=== PATIENT | male | born 1955 | race African-American/Black ===

== ENCOUNTER 2018-11-06 16:47 | Inpatient (IN) | payer OTHER ==
[2018-11-06] MEDS ORDERED: SODIUM CHLORIDE 1,000 ML IV SCH (17:00)
--- NOTE | 2018-11-06 17:01 | PDOC ---
History of Present Illness - General Stated Complaint: POSS STROKE Time Seen by Provider: 11/06/18 16:58 tPA Exclusion checklist 3-4.5h - Time Elapsed Date last known well: 11/06/18 Time last known well: 09:00 Elaspsed time: 2 Day(s) and 9 Hour(s) and 45 Minutes - Thrombolytic Therapy Candidate Is patient eligible for thrombolytic therapy: No - Ineligibility reason(s) Reasons No tPA given: Outside of window - delayed arrival NIH Stroke Scale - Last Known Well Date/Time & Onset Date Last Known Well: 11/06/18 Time Last Known Well: 09:00 - Initial Evaluation Level of consciousness: Alert Ask patient the month and their age: Answers one correctly Ask patient to open & close eyes; make fist and let go: Obeys both correctly Best gaze (horizontal eye movement): Normal Visual field testing: No visual field loss Facial paresis (Show teeth/raise eyebrows/close eyes tight): Minor paralysis ( flattened nasolabial fold, asymmetry on smiling) Motor Function: Left Arm: Normal Motor Function: Right Arm: Normal (extends arm 90 (or 45) degrees for 10 seconds without drift Motor Function: Left Leg: Normal (extends leg 30 degrees for 5 seconds without drift) Motor Function: Right Leg: Drift Limb Ataxia: No ataxia Sensory(Use pinprick test arms,legs,trunk,face/side to side): Normal Best language (Describe picture, name items, read sentences): No Aphasia Dysarthria (read several words): Normal articulation Extinction and Inattention: No abnormality - Total Score NIH Stroke Scale Score: 3 Past History - Past Medical History Allergies/Adverse Reactions: Allergies Allergy/AdvReac Type Severity Reaction Status Date / Time No Known Allergies Allergy Verified 11/06/18 18:13 Home Medications: Ambulatory Orders Carbamazepine [Tegretol -] 200 mg PO BID 11/06/18 Divalproex Sodium [Depakote ER] 500 mg PO BID 11/06/18 Fluoxetine HCl 10 mg PO DAILY 11/06/18 Levetiracetam 500 mg PO BID 11/06/18 Olanzapine [Zyprexa -] 10 mg PO BID 11/06/18 ED Treatment Course - LABORATORY CBC & Chemistry Diagram: 11/08/18 06:10 11/08/18 06:10 - RADIOLOGY Radiology Studies Ordered: Category Date Time Status HEAD CT (STROKE) [CT] Stat CT Scan 11/06/18 16:58 Ordered Medical Decision Making - Medical Decision Making HPI: 63yo M found down at facility. PMH includes seizure disorder, depression, psychosis, chronic constipation. Med list does not include blood thinners. ?LKN may have been 3pm when they took vitals. Per EMS report, slurred speech and "speaking gibberish". Patient now AAOx 2 (states name, age, and place, but not month or year). Perseverating saying he is not feeling well. Not following all commands. ROS: unable to complete as patient is confused PE: General: Awake, alert, and oriented x 2, in no acute distress Head: No signs of trauma Eyes: EOMI, sclera anicteric ENT: Moist mucus membranes Neck: Normal ROM, supple Lungs: Lungs clear, Normal breath sounds Cardio: Regular rhythm, S1 and S2 present Abdomen: Soft, nontender. No guarding, no rebound, no masses Extremities: Normal range of motion, Distal pulses present SKIN: Warm, Dry, normal turgor Neurologic: Please see NIHSS ED Courses/MDM: DDX including but not limited to CVA/TIA, Seizure/post-ictal, brain bleed, brain mass Code Keys given information at that time. 11/06/18 16:59 EKG: rate 64, QTc 416, NSR Per Domonique at [facility], she cannot verify the LKN as 3pm. To her knowledge, he was fine yesterday. This being the case, patient is outside the tpa window. CT Head: "Multiplanar imaging was performed. Intravenous contrast was not administered. No prior imaging studies are available at this facility for direct comparison. No intracranial hemorrhage is seen. There is no extra-axial fluid collection. Extensive bilateral frontal temporal encephalomalacia is seen , left more than right - ? posttraumatic etiology. Status post left frontotemporal and right parietal craniotomies. No acute infarct is identified within the limitations of CT. There is no obvious mass lesion on noncontrast imaging. No obstructive hydrocephalus is noted. The calvarium appears intact. Impression: No definite CT evidence of acute intracranial pathology. Chronic findings as discussed above." 11/06/18 17:35 Callback from Domonique from [place]. Patient was "fine all day". She is unable to say what time was his last known normal. Patient states he believes he had a seizure. He is back to his baseline, feeling better. I believe the patient had a seizure with Alex's paralysis Current NIHSS is 0 Awaiting callback from neurology 11/06/18 19:[address] Matos who recommends keeping the patient overnight for observation. He also recommends increasing the Depakote dose to 750mg BID. Patient does not necessarily need an MRI. Dr. Matos will see the patient tomorrow. Consult order placed. 11/06/18 19:57 Patient does not know who his PMD is Hospitalist paged 11/06/18 20:[address] Davis and accepted patient for telemetry observation under Dr. Duckworth 11/06/18 20:32 Domonique at [place] has been updated regarding patient's disposition 11/06/18 22:26 *DC/Admit/Observation/Transfer Diagnosis at time of Disposition: Alex's paralysis (postepileptic), Seizure, Facial droop - Discharge Dispostion Condition at time of disposition: Guarded Decision to Admit order: Yes - Referrals - Patient Instructions - Post Discharge Activity
--- NOTE | 2018-11-06 17:26 | PDOC ---
Documentation entered by Katie Hoffmann SCRIBE, acting as scribe for Scott Navarro MD. Scott Navarro MD: This documentation has been prepared by the scribeShun Brenda, SCRIBE, under my direction and personally reviewed by me in its entirety. I confirm that the documentation accurately reflects all work, treatment, procedures, and medical decision making performed by me. Attending Attestation - Resident Resident Name: Cassidy Murry - ED Attending Attestation I have performed the following: I have examined & evaluated the patient, The case was reviewed & discussed with the resident, I agree w/resident's findings & plan, Exceptions are as noted - HPI HPI: 11/06/18 18:19 The patient is a 63 year old male, with a significant PMH of seizure disorders, who presents to the emergency department [facility] due to altered mental status. A per EMS, the patient had slurred speech and was not speaking properly, they also believe that his last known well was at 3:00pm. Patient currently reports not feeling well. Patient was a bad historian due to condition. Allergies: NKA - Physicial Exam PE: 11/06/18 19:40 GENERAL: Awake, alert, and fully oriented, in no acute distress HEAD: No signs of trauma EYES: PERRLA, EOMI, sclera anicteric, conjunctiva clear ENT: Auricles normal inspection, hearing grossly normal, nares patent,Moist mucosa NECK: Normal ROM, supple, LUNGS: Breath sounds equal, clear to auscultation bilaterally. No wheezes, and no crackles HEART: Regular rate and rhythm, normal S1 and S2, no murmurs, rubs or gallops ABDOMEN: Soft, nontender, No guarding, no rebound. No masses EXTREMITIES: Normal range of motion, no edema. No clubbing or cyanosis. No cords, erythema, or tenderness NEUROLOGICAL: Cranial nerves II through XII intact. Normal speech. 5/5 strength upper and lower extremities. Sensation intact throughout. No pronator drift. Visual acuity intact. Rapid alternative intact. Finger to nose intact. Heel to mckenna intact. SKIN: Warm, Dry, normal turgor, no rashes or lesions noted. - Medical Decision Making 11/06/18 19:41 A portion of this note was written by my scribe, under my supervision. Vital Signs Temp Pulse Resp BP Pulse Ox 97.8 F 66 16 141/86 98 11/06/18 16:49 11/06/18 16:49 11/06/18 16:49 11/06/18 16:49 11/06/18 16:55 63 year old male presents with likely seizure from his seizure disorder. Pt is on multiple AEDS. Initially, when my resident physicians had seen the patient, the patient appeared confused and postictal. Initially,had R sided weakness. Possibly Alex's paralysis. However, on my evaluation, patient is back at baseline. Neuro exam is completely normal. Head CT is negative for acute findings. CBC, BMP 11/06/18 17:41 11/06/18 17:41 CMP Sodium 140 mmol/L (136-145) 11/06/18 17:41 Potassium 4.7 mmol/L (3.5-5.1) 11/06/18 17:41 Chloride 104 mmol/L (98-107) 11/06/18 17:41 Carbon Dioxide 30 mmol/L (21-32) 11/06/18 17:41 Anion Gap 6 MMOL/L (8-16) L 11/06/18 17:41 BUN 11.1 mg/dL (7-18) 11/06/18 17:41 Creatinine 0.7 mg/dL (0.55-1.3) 11/06/18 17:41 Est GFR (CKD-EPI)AfAm 114.78 11/06/18 17:41 Est GFR (CKD-EPI)NonAf 99.03 11/06/18 17:41 POC Glucometer 94 UNITS (80-120) 11/06/18 17:18 Random Glucose 84 mg/dL (74-106) 11/06/18 17:41 Calcium 8.9 mg/dL (8.5-10.1) 11/06/18 17:41 Total Bilirubin 0.5 mg/dL (0.2-1) 11/06/18 17:41 AST 40 U/L (15-37) H 11/06/18 17:41 ALT 34 U/L (13-61) 11/06/18 17:41 Alkaline Phosphatase 59 U/L (45-117) 11/06/18 17:41 Creatine Kinase 107 U/L (26-308) 11/06/18 17:41 Troponin I < 0.02 ng/ml (0.00-0.05) 11/06/18 17:41 Total Protein 7.9 g/dl (6.4-8.2) 11/06/18 17:41 Albumin 3.4 g/dl (3.4-5.0) 11/06/18 17:41 Triglycerides 118 mg/dL (0-150) 11/06/18 17:41 Cholesterol 170 mg/dL (50-200) 11/06/18 17:41 Total LDL Cholesterol 95 mg/dL (5-100) 11/06/18 17:41 HDL Cholesterol 58 mg/dL (40-60) 11/06/18 17:41 Case was discussed with Dr. Matos. He recommends observation in the hospital. Will admit patient to the hospital. Heart Score/ECG Review #1 ECG reviewed & interpreted by me at: 17:15 11/06/18 17:26 NSR 64, no std/shirley, normal axis, normal intervals, QTC 416 msec NIH Stroke Scale - Last Known Well Date/Time & Onset Date Last Known Well: 11/06/18 - Initial Evaluation Level of consciousness: Alert Ask patient the month and their age: Answers both correctly Ask patient to open & close eyes; make fist and let go: Obeys both correctly Best gaze (horizontal eye movement): Normal Visual field testing: No visual field loss Facial paresis (Show teeth/raise eyebrows/close eyes tight): Normal symmetrical movement Motor Function: Left Arm: Normal Motor Function: Right Arm: Normal (extends arm 90 (or 45) degrees for 10 seconds without drift Motor Function: Left Leg: Normal (extends leg 30 degrees for 5 seconds without drift) Motor Function: Right Leg: Normal (extends leg 30 degrees for 5 seconds without drift) Limb Ataxia: No ataxia Sensory(Use pinprick test arms,legs,trunk,face/side to side): Normal Best language (Describe picture, name items, read sentences): No Aphasia Dysarthria (read several words): Normal articulation Extinction and Inattention: No abnormality - Total Score NIH Stroke Scale Score: 0
[2018-11-06 18:07] LABS: BASO % 0.5 % (0-2.0); EOS % 0.3 % (0-4.5); HEMATOCRIT 38.4 % (35.4-49); HEMOGLOBIN 13.2 GM/dL (11.7-16.9); LYMPH % 51.5 % (8-40); MCHC 34.4 g/dl (32.0-35.9); MEAN CELL VOLUME 93.1 fl (80-96); MEAN PLT VOLUME 9.5 fl (7.5-11.1); MONO % 12.7 % (3.8-10.2); PLATELET COUNT 112 K/MM3 (134-434); RBC 4.12 M/mm3 (4.00-5.60); RDW 13.6 % (11.9-15.9); WHITE BLOOD COUNT 3.4 K/mm3 (4.0-10.0)
[2018-11-06 18:14] LABS: INR 1.03 (0.83-1.09); PROTHROMBIN TIME (PATIENT) 12.1 SEC (9.7-13.0)
[2018-11-06 18:28] LABS: TRIGLYCERIDES 118 mg/dL (0-150)
[2018-11-06 18:34] LABS: ALBUMIN 3.4 g/dl (3.4-5.0); ALK PHOS 59 U/L (45-117); ANION GAP 6 MMOL/L (8-16); BILIRUBIN,TOTAL 0.5 mg/dL (0.2-1); BLOOD UREA NITROGEN 11.1 mg/dL (7-18); CALCIUM 8.9 mg/dL (8.5-10.1); CHLORIDE 104 mmol/L (98-107); CHOLESTEROL 170 mg/dL (50-200); CO2 30 mmol/L (21-32); CREATININE 0.7 mg/dL (0.55-1.3); GLUCOSE,RANDOM 84 mg/dL (74-106); HDL CHOLESTEROL 58 mg/dL (40-60); POTASSIUM 4.7 mmol/L (3.5-5.1); SGOT/AST 40 U/L (15-37); SGPT/ALT 34 U/L (13-61); SODIUM 140 mmol/L (136-145); TOT PROT 7.9 g/dl (6.4-8.2)
[2018-11-06] MEDS ORDERED: levETIRAcetam 500 MG TABLET (FP) PO ONE (22:00)
[2018-11-06] MEDS ORDERED: carBAMazepine 200 MG TABLET ONE (22:00)
[2018-11-06] MEDS: levETIRAcetam 500 MG TABLET (FP) PO SCH (22:28)
[2018-11-06] MEDS: DIVALPROEX NA *ER* EXTEND REL 250 MG TABLET.SA PO SCH (22:28)
[2018-11-06] MEDS: carBAMazepine 200 MG TABLET PO SCH (22:28)
[2018-11-07] MEDS: SODIUM CHLORIDE 1,000 ML IV SCH
[2018-11-07 00:22] VITALS: BMI 27.3
--- NOTE | 2018-11-07 01:32 | PN ---
Teaching Attending Note Name of Resident: Tracey Davis ATTENDING PHYSICIAN STATEMENT I saw and evaluated the patient. Chart, data, imaging reviewed. I reviewed the resident's note and discussed the case with the resident. I agree with the resident's findings and plan as documented. SUBJECTIVE: 63 year old male, with a significant PMH of seizure disorders brought in after witnessed tonic clonic sz episode at assisted 11/06. No complaints when I spoke to him. OBJECTIVE: Last Vital Signs Temp Pulse Resp BP Pulse Ox 97.8 F 53 L 18 138/87 97 11/07/18 00:02 11/07/18 00:02 11/07/18 00:23 11/07/18 00:02 11/07/18 00:23 gen -nontoxic, nad, aaox2 heent -at, nc neck supple cv-s1+s2+rrr chest clear abd -soft Abnormal Lab Results 11/06/18 11/06/18 17:41 17:41 WBC 3.4 L Plt Count 112 L Absolute Neuts (auto) 1.2 L Neutrophils % 35.0 L Lymphocytes % 51.5 H Monocytes % 12.7 H Anion Gap 6 L AST 40 H imaging reviewed ASSESSMENT AND PLAN: Breakthrough witnessed tonic clonic seizure. Clonazepine, Valproate levels were wnl. Pending Keppra level. Head CT neg for acute insults. Doubt tia. -admit to telemetry -npo -neuro eval -echo -c/w home aeds- increase Valproate to 750mg po bid as per neuro recs -monitor vs closely -ekg -check electrolytes, replace prn -dvt ppx
--- NOTE | 2018-11-07 04:08 | HP ---
CHIEF COMPLAINT: seizure PCP: HISTORY OF PRESENT ILLNESS: 63 y/o M with PMH sz d/o (dx 10 yrs ago. on carbamezipine, keppra, depakote), depression, psychosis, constipation, hx L frontal and parietal craniotomy (s/p trauma), who presents to the ED s/p witnessed seizure. Per pt, he fell when he was in his NH at [facility]. Had a witnessed sz with tonic clonic movements , however no tongue biting or urinary or bowel incontinence. States that he hit his head. When pt arrived to ED, NIHSS was done as pt had R sided facial droop, RUE drift. Was found to have score of 4. Last known well 3pm DOA. Was not tPA as outside window and sx improved. Unclear whether sx stemmed from sz or were related to cva. Without FAIRCHILD, fever, chills, SOB, chest pain or changes in urinary or bowel function. Pt is compliant with his sz meds. However states that he has sz "on and off." Ambulates w cane ER course was notable for: (1) neuro consult (2) (3) Recent Travel: denies PAST MEDICAL HISTORY: as above PAST SURGICAL HISTORY: L frontal and parietal craniotomy (s/p trauma) Social History: Smoking: denies Alcohol: denies Drugs: denies Family History: non-contributory Allergies No Known Allergies Allergy (Verified 11/06/18 18:13) HOME MEDICATIONS: Home Medications Medication Instructions Recorded Carbamazepine [Tegretol -] 200 mg PO BID 11/06/18 Divalproex Sodium [Depakote ER] 500 mg PO BID 11/06/18 Fluoxetine HCl 10 mg PO DAILY 11/06/18 Levetiracetam 500 mg PO BID 11/06/18 Olanzapine [Zyprexa -] 10 mg PO BID 11/06/18 meds need to be verified w pharmacy REVIEW OF SYSTEMS none PHYSICAL EXAMINATION Vital Signs 11/07/18 11/07/18 11/07/18 00:02 00:23 01:00 Temperature 97.8 F 98.1 F Pulse Rate 53 L 53 L Pulse Rate [ Left Brachial] Respiratory 18 18 18 Rate Blood Pressure 138/87 127/76 Blood Pressure [Left Arm] O2 Sat by Pulse 97 97 Oximetry (%) GENERAL: Awake, alert, and fully oriented, in no acute distress. HEAD: Normal with no signs of trauma. EYES: Pupils equal, round and reactive to light, extraocular movements intact, sclera anicteric, conjunctiva clear. EARS, NOSE, THROAT: Ears normal, nares patent, oropharynx clear without exudates. Moist mucous membranes. NECK: Normal range of motion, supple LUNGS: Breath sounds equal, clear to auscultation bilaterally. No wheezes, and no crackles. No accessory muscle use. HEART: Regular rate and rhythm, normal S1 and S2 without murmur, rub or gallop. ABDOMEN: Soft, nontender, not distended, normoactive bowel sounds, no guarding, no rebound, no masses. MUSCULOSKELETAL: 5/5 motor strength UE, LE NEUROLOGICAL: Cranial nerves II-XII intact. Normal speech. 5/5 motor strength UE, LE. sensation intact. w/o cerebellar signs. without pronator drift Laboratory Results 11/06/18 11/06/18 11/06/18 17:41 17:41 17:41 WBC 3.4 L Hgb 13.2 Hct 38.4 Plt Count 112 L Sodium 140 Potassium 4.7 Chloride 104 Carbon Dioxide 30 BUN 11.1 Creatinine 0.7 AST 40 H Valproic Acid 72.3 Carbamazepine Levetiracetam 11/06/18 11/06/18 17:41 20:30 Plt Count Valproic Acid Carbamazepine 6.6 Levetiracetam Pending CTH: (-) for acute abnormality ASSESSMENT/PLAN: 63 y/o M with PMH sz d/o (on carbamezipine, keppra, depakote), depression, psychosis, constipation, hx L frontal and parietal craniotomy (s/p trauma), who presents to the ED s/p witnessed seizure. #Seizure episode -possible breakthrough seizure. has been compliant w meds, no infectious stimulus -ED d/w neuro, rec increased dose to depakote 750mg BID (from 500 mg BID) -c/w depakote, carbamezepine, keppra -cont to follow levels -sz precautions -neuro consult: Dr. Matos #r/o CVA -though likely sz, as pt with neuro signs on presentation. r/o cva -f/u ECHO, carotid duplex, s/s, npo, PT #Thrombocytopenia -may be 2/2 anti epileptics -c/t monitor -f/u abd sono to check for splenomegaly -if pt consents to, can check for hiv, hep c #F/E/N IV NS 100 cc/hr continue to follow lytes npo #PPX SCD's. follow thrombocytopenia #Dispo admit to tele Visit type - Emergency Visit Emergency Visit: Yes ED Registration Date: 11/06/18 Care time: The patient presented to the Emergency Department on the above date and was hospitalized for further evaluation of their emergent condition. - New Patient This patient is new to me today: Yes Date on this admission: 11/07/18 - Critical Care Critical Care patient: No ATTENDING PHYSICIAN STATEMENT I saw and evaluated the patient. I reviewed the resident's note and discussed the case with the resident. I agree with the resident's findings and plan as documented. SUBJECTIVE: OBJECTIVE: ASSESSMENT AND PLAN:
[2018-11-07 07:55] LABS: BASO % 0.2 % (0-2.0); CALCIUM 8.9 mg/dL (8.5-10.1); CREATININE 0.7 mg/dL (0.55-1.3); EOS % 0.1 % (0-4.5); HEMATOCRIT 36.2 % (35.4-49); HEMOGLOBIN 12.5 GM/dL (11.7-16.9); LYMPH % 51.1 % (8-40); MAGNESIUM 2.2 mg/dL (1.8-2.4); MCHC 34.4 g/dl (32.0-35.9); MEAN CELL VOLUME 92.9 fl (80-96); MEAN PLT VOLUME 9.2 fl (7.5-11.1); MONO % 14.3 % (3.8-10.2); NEUT % 34.3 % (42.8-82.8); PHOSPHOROUS 3.6 mg/dL (2.5-4.9); PLATELET COUNT 102 K/MM3 (134-434); POTASSIUM 3.7 mmol/L (3.5-5.1); RDW 13.5 % (11.9-15.9); WHITE BLOOD COUNT 4.1 K/mm3 (4.0-10.0)
[2018-11-07 09:10] LABS: URINE APPEARANCE CLEAR; URINE BILIRUBIN NEGATIVE (NEGATIVE); URINE COLOR YELLOW; URINE GLUCOSE (UA) NEGATIVE (NEGATIVE); URINE KETONE NEGATIVE (NEGATIVE); URINE LEUK ESTERASE NEGATIVE (NEGATIVE); URINE NITRITE NEGATIVE (NEGATIVE); URINE PROTEIN NEGATIVE (NEGATIVE)
[2018-11-07] MEDS ORDERED: PT OWN MED DRAWER 7, Y5N ONE ×2 (09:25→21:27)
[2018-11-07] MEDS: FLUoxetine HCL 10 MG CAPSULE (FP) PO SCH (09:45)
[2018-11-07] MEDS: carBAMazepine 200 MG TABLET PO SCH ×2 (09:45→21:32)
[2018-11-07] MEDS: levETIRAcetam 500 MG TABLET (FP) PO SCH ×2 (09:45→21:32)
[2018-11-07] MEDS: DIVALPROEX NA *ER* EXTEND REL 250 MG TABLET.SA PO SCH ×2 (09:47→21:32)
--- NOTE | 2018-11-07 10:50 | CONSULT ---
Consult - text type - Consultation Consultation Note: NEUROLOGY HISTORY OF PRESENT ILLNESS: 63 y/o M with PMH sz d/o (dx 10 yrs ago. on carbamezipine, keppra, depakote), depression, psychosis, constipation, hx L frontal and parietal craniotomy (s/p trauma), who presents to the ED s/p witnessed seizure. As per patient, he fell when he was in his NH at [facility]. He had a witnessed seizure with tonic clonic movements on day of admission, however no tongue biting or urinary or bowel incontinence. Stated that he hit his head. When pt arrived to ED, NIHSS was done as pt had R sided facial droop, RUE drift, was found to have score of 4. Last known well 3pm DOA. Was not tPA as outside window and sx improved. Unclear whether sx stemmed from sz or were related to cva. Without FAIRCHILD , fever, chills, SOB, chest pain or changes in urinary or bowel function. Pt is compliant with his sz meds. However states that he has sz "on and off." Ambulates w cane. Patient completed head ct with no acute findings and carotid doppler ultrasound with moderate calcified atheroscleortic plaque formation at the bifucations. Will order MRI to confirm no acute changes. Recent Travel: denies PAST MEDICAL HISTORY: as above PAST SURGICAL HISTORY: L frontal and parietal craniotomy (s/p trauma) Social History: Smoking: denies Alcohol: denies Drugs: denies Family History: non-contributory Allergies No Known Allergies Allergy (Verified 11/06/18 18:13) Ambulatory Orders Carbamazepine [Tegretol -] 200 mg PO BID 11/06/18 Divalproex Sodium [Depakote ER] 500 mg PO BID 11/06/18 Fluoxetine HCl 10 mg PO DAILY 11/06/18 Levetiracetam 500 mg PO BID 11/06/18 Olanzapine [Zyprexa -] 10 mg PO BID 11/06/18 REVIEW OF SYSTEMS none PHYSICAL EXAMINATION Vital Signs Temperature 98.6 F 11/07/18 06:00 Pulse Rate 55 L 11/07/18 06:00 Respiratory Rate 18 11/07/18 06:00 Blood Pressure 141/84 11/07/18 06:00 O2 Sat by Pulse Oximetry (%) 97 11/07/18 00:23 GENERAL: Awake, alert, and fully oriented, in no acute distress. HEAD: Normal with no signs of trauma. EYES: Pupils equal, round and reactive to light, extraocular movements intact, sclera anicteric, conjunctiva clear. EARS, NOSE, THROAT: Ears normal, nares patent, oropharynx clear without exudates. Moist mucous membranes. NECK: Normal range of motion, supple LUNGS: Breath sounds equal, clear to auscultation bilaterally. No wheezes, and no crackles. No accessory muscle use. HEART: Regular rate and rhythm, normal S1 and S2 without murmur, rub or gallop. ABDOMEN: Soft, nontender, not distended, normoactive bowel sounds, no guarding, no rebound, no masses. MUSCULOSKELETAL: 5/5 motor strength UE, LE NEUROLOGICAL: Cranial nerves II-XII intact. Normal speech. 5/5 motor strength UE, LE. sensation intact. w/o cerebellar signs. without pronator drift CBCD WBC 4.1 K/mm3 (4.0-10.0) 11/07/18 06:00 RBC 3.90 M/mm3 (4.00-5.60) L 11/07/18 06:00 Hgb 12.5 GM/dL (11.7-16.9) 11/07/18 06:00 Hct 36.2 % (35.4-49) 11/07/18 06:00 MCV 92.9 fl (80-96) 11/07/18 06:00 MCHC 34.4 g/dl (32.0-35.9) 11/07/18 06:00 RDW 13.5 % (11.9-15.9) 11/07/18 06:00 Plt Count 102 K/MM3 (134-434) L 11/07/18 06:00 MPV 9.2 fl (7.5-11.1) 11/07/18 06:00 CMP Sodium 142 mmol/L (136-145) 11/07/18 06:00 Potassium 3.7 mmol/L (3.5-5.1) 11/07/18 06:00 Chloride 105 mmol/L (98-107) 11/07/18 06:00 Carbon Dioxide 31 mmol/L (21-32) 11/07/18 06:00 Anion Gap 5 MMOL/L (8-16) L 11/07/18 06:00 BUN 8.0 mg/dL (7-18) 11/07/18 06:00 Creatinine 0.7 mg/dL (0.55-1.3) 11/07/18 06:00 Random Glucose 75 mg/dL (74-106) 11/07/18 06:00 Calcium 8.9 mg/dL (8.5-10.1) 11/07/18 06:00 Total Bilirubin 0.5 mg/dL (0.2-1) 11/06/18 17:41 AST 40 U/L (15-37) H 11/06/18 17:41 ALT 34 U/L (13-61) 11/06/18 17:41 Alkaline Phosphatase 59 U/L (45-117) 11/06/18 17:41 Total Protein 7.9 g/dl (6.4-8.2) 11/06/18 17:41 Albumin 3.4 g/dl (3.4-5.0) 11/06/18 17:41 CARDIAC ENZYMES Creatine Kinase 107 U/L (26-308) 11/06/18 17:41 Troponin I < 0.02 ng/ml (0.00-0.05) 11/06/18 17:41 Diagnostic: Head CT - no acute findings Carotid Ultrasound, Bilateral - moderate calcified atheroscleortic plaque formation at the bifucations ASSESSMENT/PLAN 63 y/o M with PMH sz d/o (dx 10 yrs ago. on carbamezipine, keppra, depakote), depression, psychosis, constipation, hx L frontal and parietal craniotomy (s/p trauma), who presents to the ED s/p witnessed seizure. As per patient, he fell when he was in his NH at [facility]. He had a witnessed seizure with tonic clonic movements on day of admission, however no tongue biting or urinary or bowel incontinence. Stated that he hit his head. When pt arrived to ED, NIHSS was done as pt had R sided facial droop, RUE drift, was found to have score of 4. Last known well 3pm DOA. Was not tPA as outside window and sx improved. Unclear whether sx stemmed from sz or were related to cva. Without FAIRCHILD , fever, chills, SOB, chest pain or changes in urinary or bowel function. Pt is compliant with his sz meds. However states that he has sz "on and off." Ambulates w cane. Patient completed head ct with no acute findings and carotid doppler ultrasound with moderate calcified atheroscleortic plaque formation at the bifucations. Will order MRI to confirm no acute changes. Depakote increased to 750mg on night of admission when I spoke to ER in detail regarding case. Seizure precautions. Maintain medication compliance, hydration.
--- NOTE | 2018-11-07 12:29 | PN ---
Physical Exam: SUBJECTIVE: Patient seen and examined, pt sitting up, unable to access IV on arm , will try foot, lunch tray noted, no dysphagia reported, no slurred speech IVF ordered Depakote increased to 750mg BID keppra level in process no seizures today zyprexa on hold OBJECTIVE: Vital Signs Period Temp Pulse Resp BP Sys/Beach Pulse Ox Last 24 Hr 97.8 F-98.6 F 53-66 16-18 125-141/73-87 97-100 GENERAL: The patient is awake, alert, and fully oriented, in no acute distress. HEAD: Normal with no signs of trauma. EYES: PERRL, extraocular movements intact, sclera anicteric, conjunctiva clear. No ptosis. ENT: Ears normal, nares patent, oropharynx clear without exudates, moist mucous membranes. NECK: Trachea midline, full range of motion, supple. LUNGS: Breath sounds equal, clear to auscultation bilaterally, no wheezes, no crackles, no accessory muscle use. HEART: Regular rate and rhythm, S1, S2 without murmur, rub or gallop. ABDOMEN: Soft, nontender, nondistended, normoactive bowel sounds, no guarding, no rebound, no hepatosplenomegaly, no masses. EXTREMITIES: 2+ pulses, warm, well-perfused, no edema. NEUROLOGICAL: Cranial nerves II through XII grossly intact. Normal speech, gait not observed. PSYCH: Normal mood, normal affect. SKIN: Warm, dry, normal turgor, no rashes or lesions noted Laboratory Results - last 24 hr 11/06/18 11/06/18 11/06/18 06:00 07:30 17:18 WBC RBC Hgb Hct MCV MCH MCHC RDW Plt Count MPV Absolute Neuts (auto) Neutrophils % Lymphocytes % Monocytes % Eosinophils % Basophils % Nucleated RBC % PT with INR INR Sodium Potassium Chloride Carbon Dioxide Anion Gap BUN Creatinine Est GFR (CKD-EPI)AfAm Est GFR (CKD-EPI)NonAf POC Glucometer 94 Random Glucose Calcium Phosphorus Magnesium Total Bilirubin AST ALT Alkaline Phosphatase Creatine Kinase Troponin I Total Protein Albumin Triglycerides Cholesterol Total LDL Cholesterol HDL Cholesterol Urine Color Yellow Urine Appearance Clear Urine pH 8.0 Ur Specific [place] 1.006 L Urine Protein Negative Urine Glucose (UA) Negative Urine Ketones Negative Urine Blood Negative Urine Nitrite Negative Urine Bilirubin Negative Urine Urobilinogen 1.0 Ur Leukocyte Esterase Negative Valproic Acid Carbamazepine Blood Type O POSITIVE Antibody Screen 11/06/18 11/06/18 11/06/18 17:41 17:41 17:41 WBC 3.4 L RBC 4.12 Hgb 13.2 Hct 38.4 MCV 93.1 MCH 32.0 MCHC 34.4 RDW 13.6 Plt Count 112 L MPV 9.5 Absolute Neuts (auto) 1.2 L Neutrophils % 35.0 L Lymphocytes % 51.5 H Monocytes % 12.7 H Eosinophils % 0.3 Basophils % 0.5 Nucleated RBC % 0 PT with INR INR Sodium 140 Potassium 4.7 Chloride 104 Carbon Dioxide 30 Anion Gap 6 L BUN 11.1 Creatinine 0.7 Est GFR (CKD-EPI)AfAm 114.78 Est GFR (CKD-EPI)NonAf 99.03 POC Glucometer Random Glucose 84 Calcium 8.9 Phosphorus Magnesium Total Bilirubin 0.5 AST 40 H ALT 34 Alkaline Phosphatase 59 Creatine Kinase 107 Troponin I < 0.02 Total Protein 7.9 Albumin 3.4 Triglycerides 118 Cholesterol 170 Total LDL Cholesterol 95 HDL Cholesterol 58 Urine Color Urine Appearance Urine pH Ur Specific [place] Urine Protein Urine Glucose (UA) Urine Ketones Urine Blood Urine Nitrite Urine Bilirubin Urine Urobilinogen Ur Leukocyte Esterase Valproic Acid Carbamazepine Blood Type Antibody Screen 11/06/18 11/06/18 11/06/18 17:41 17:41 17:41 WBC RBC Hgb Hct MCV MCH MCHC RDW Plt Count MPV Absolute Neuts (auto) Neutrophils % Lymphocytes % Monocytes % Eosinophils % Basophils % Nucleated RBC % PT with INR 12.10 INR 1.03 Sodium Potassium Chloride Carbon Dioxide Anion Gap BUN Creatinine Est GFR (CKD-EPI)AfAm Est GFR (CKD-EPI)NonAf POC Glucometer Random Glucose Calcium Phosphorus Magnesium Total Bilirubin AST ALT Alkaline Phosphatase Creatine Kinase Troponin I Total Protein Albumin Triglycerides Cholesterol Total LDL Cholesterol HDL Cholesterol Urine Color Urine Appearance Urine pH Ur Specific [place] Urine Protein Urine Glucose (UA) Urine Ketones Urine Blood Urine Nitrite Urine Bilirubin Urine Urobilinogen Ur Leukocyte Esterase Valproic Acid 72.3 Carbamazepine Blood Type Cancelled Antibody Screen Cancelled 11/06/18 11/06/18 11/07/18 17:41 18:39 06:00 WBC 4.1 RBC 3.90 L Hgb 12.5 Hct 36.2 MCV 92.9 MCH 32.0 MCHC 34.4 RDW 13.5 Plt Count 102 L MPV 9.2 Absolute Neuts (auto) 1.4 L Neutrophils % 34.3 L Lymphocytes % 51.1 H Monocytes % 14.3 H Eosinophils % 0.1 Basophils % 0.2 Nucleated RBC % 0 PT with INR INR Sodium Potassium Chloride Carbon Dioxide Anion Gap BUN Creatinine Est GFR (CKD-EPI)AfAm Est GFR (CKD-EPI)NonAf POC Glucometer Random Glucose Calcium Phosphorus Magnesium Total Bilirubin AST ALT Alkaline Phosphatase Creatine Kinase Troponin I Total Protein Albumin Triglycerides Cholesterol Total LDL Cholesterol HDL Cholesterol Urine Color Urine Appearance Urine pH Ur Specific [place] Urine Protein Urine Glucose (UA) Urine Ketones Urine Blood Urine Nitrite Urine Bilirubin Urine Urobilinogen Ur Leukocyte Esterase Valproic Acid Carbamazepine 6.6 Blood Type O POSITIVE Antibody Screen Negative 11/07/18 06:00 WBC RBC Hgb Hct MCV MCH MCHC RDW Plt Count MPV Absolute Neuts (auto) Neutrophils % Lymphocytes % Monocytes % Eosinophils % Basophils % Nucleated RBC % PT with INR INR Sodium 142 Potassium 3.7 Chloride 105 Carbon Dioxide 31 Anion Gap 5 L BUN 8.0 Creatinine 0.7 Est GFR (CKD-EPI)AfAm 114.78 Est GFR (CKD-EPI)NonAf 99.03 POC Glucometer Random Glucose 75 Calcium 8.9 Phosphorus 3.6 Magnesium 2.2 Total Bilirubin AST ALT Alkaline Phosphatase Creatine Kinase Troponin I Total Protein Albumin Triglycerides Cholesterol Total LDL Cholesterol HDL Cholesterol Urine Color Urine Appearance Urine pH Ur Specific [place] Urine Protein Urine Glucose (UA) Urine Ketones Urine Blood Urine Nitrite Urine Bilirubin Urine Urobilinogen Ur Leukocyte Esterase Valproic Acid Carbamazepine Blood Type Antibody Screen Active Medications Generic Name Dose Route Start Last Admin Trade Name Freq PRN Reason Stop Dose Admin Carbamazepine 200 mg 11/06/18 22:00 11/07/18 09:45 Tegretol - PO 200 mg BID SRIRAM Administration Divalproex Sodium 750 mg 11/06/18 22:00 11/07/18 09:47 Depakote *Er* - PO 750 mg BID SRIRAM Administration Fluoxetine HCl 10 mg 11/07/18 10:00 11/07/18 09:45 Prozac - PO 10 mg DAILY SRIRAM Administration Sodium Chloride 1,000 mls @ 100 mls/hr 11/06/18 23:55 11/07/18 00:00 Normal Saline - IV 100 mls/hr ASDIR SRIRAM Administration Levetiracetam 500 mg 11/06/18 22:00 11/07/18 09:45 Keppra - PO 500 mg BID SRIRAM Administration ASSESSMENT/PLAN: 63 y/o M with PMH sz d/o (on carbamezipine, keppra, depakote), depression, psychosis, constipation, hx L frontal and parietal craniotomy (s/p trauma), who presents to the ED s/p witnessed seizure. #Seizure episode -possible breakthrough seizure. has been compliant w meds, no infectious stimulus -as per neuro, rec increased dose to depakote 750mg BID (from 500 mg BID) -c/w depakote, carbamezepine, keppra -CT head no acute findings -Carotid no stenosis -cont to follow levels -seizurez precautions -neuro following -echo #r/o CVA -though likely sz, as pt with neuro signs on presentation. r/o cva -f/u ECHO, carotid duplex, s/s, PT #Thrombocytopenia -may be 2/2 anti epileptics -c/t monitor -abd sono no spleenomegaly -if pt consents to, can check for hiv, hep c #F/E/N -IV NS 100 cc/hr -continue to follow lytes #PPX SCD's. follow thrombocytopenia #Dispo admit to tele Visit type - Emergency Visit Emergency Visit: Yes ED Registration Date: 11/06/18 Care time: The patient presented to the Emergency Department on the above date and was hospitalized for further evaluation of their emergent condition. - New Patient This patient is new to me today: Yes Date on this admission: 11/07/18 - Critical Care Critical Care patient: No
[2018-11-08 08:22] LABS: BILIRUBIN,TOTAL 0.5 mg/dL (0.2-1); BLOOD UREA NITROGEN 11.8 mg/dL (7-18); CALCIUM 8.4 mg/dL (8.5-10.1); CREATININE 0.7 mg/dL (0.55-1.3); POTASSIUM 3.5 mmol/L (3.5-5.1)
[2018-11-08 08:51] LABS: BASO % 0.3 % (0-2.0); EOS % 0.3 % (0-4.5); HEMOGLOBIN 12.4 GM/dL (11.7-16.9); LYMPH % 50.8 % (8-40); MCH 31.9 pg (25.7-33.7); MCHC 34.4 g/dl (32.0-35.9); MEAN CELL VOLUME 92.6 fl (80-96); MONO % 15.3 % (3.8-10.2); NEUT % 33.3 % (42.8-82.8); PLATELET COUNT 102 K/MM3 (134-434); RBC 3.89 M/mm3 (4.00-5.60); RDW 13.6 % (11.9-15.9); WHITE BLOOD COUNT 3.9 K/mm3 (4.0-10.0)
[2018-11-08] MEDS ORDERED: PT OWN MED DRAWER 7, Y5N ONE (09:17)
--- NOTE | 2018-11-08 09:36 | PN ---
Teaching Attending Note Name of Resident: Tracey Davis ATTENDING PHYSICIAN STATEMENT I saw and evaluated the patient. I reviewed the resident's note and discussed the case with the resident. I agree with the resident's findings and plan as documented. SUBJECTIVE:feels much better today. no longer feels weak on the R side. says he typically has symptoms prior to seizure (dizzy and lightheaded) however he did not have anything on day of presentation. claims med compliance and no recent changes. no recent abx. denies CP, SOB, fever, chills, N/V/C/D, difficulty ambulating OBJECTIVE: Last Vital Signs Temp Pulse Resp BP Pulse Ox 98 F 56 L 20 131/63 97 11/08/18 06:00 11/08/18 06:00 11/08/18 06:00 11/08/18 06:00 11/07/18 21:00 General NAD CV S1 S2 RRR no murmur/rub/gallop no carotid bruit Lungs CTA B/L no wheezing/rales/rhonchi Neuro CN II -XII grossly intact. no facial droop appreciated. strength equal in all 4 extremities ASSESSMENT AND PLAN: 63yo M with PMH seizure presented to the ER with seizure like activity and noted to have R facial droop and RUE weakness 1. Breakthrough seizure- no signs of infection. depakote increased to 750mg. valproic and cabmazepime levels good. keppra level pending. neuro on board 2. R facial droop- r/o CVA vs todds paralysis. imaging noted. Brain MRI showing decreased flow through L carotid artery. concern for stenosis although doppler were negative. unable to obtain CTA due to poor peripheral access. will get MRA of head and neck to further evaluate. may need vascular eval. neuro on board 3. Thrombocytopenia- stable. no signs of bleeding. u/s negative for spleenomegaly 4. Sinus bradycardia- asymptomatic. check EKG. responds to light activity 5. DVT ppx- EAM
[2018-11-08] MEDS: levETIRAcetam 500 MG TABLET (FP) PO SCH ×2 (10:26→21:40)
[2018-11-08] MEDS: carBAMazepine 200 MG TABLET PO SCH ×2 (10:26→21:40)
[2018-11-08] MEDS: DIVALPROEX NA *ER* EXTEND REL 250 MG TABLET.SA PO SCH ×2 (10:27→21:41)
[2018-11-08] MEDS: SODIUM CHLORIDE 1,000 ML IV SCH (10:28)
--- NOTE | 2018-11-08 10:29 | PN ---
Progress Note (short form) - Note Progress Note: NEUROLOGY HISTORY OF PRESENT ILLNESS: 63 y/o M with PMH sz d/o (dx 10 yrs ago. on carbamezipine, keppra, depakote), depression, psychosis, constipation, hx L frontal and parietal craniotomy (s/p trauma), who presents to the ED s/p witnessed seizure. As per patient, he fell when he was in his NH at [facility]. He had a witnessed seizure with tonic clonic movements on day of admission, however no tongue biting or urinary or bowel incontinence. Stated that he hit his head. When pt arrived to ED, NIHSS was done as pt had R sided facial droop, RUE drift, was found to have score of 4. Last known well 3pm DOA. Was not tPA as outside window and sx improved. Unclear whether sx stemmed from sz or were related to cva. Without FAIRCHILD , fever, chills, SOB, chest pain or changes in urinary or bowel function. Pt is compliant with his sz meds. However states that he has sz "on and off." Ambulates w cane. Patient completed head ct with no acute findings and carotid doppler ultrasound with moderate calcified atheroscleortic plaque formation at the bifucations. MRI completed with evidence of chronic changes, no acute changes. Carotid Dopplers also completed and without high-grade stenosis, though MRI did mention possible decreased flow in left internal carotid arteryand consider further vascular workup, will defer to primary team. Depakote increased to 750mg on night of admission when I spoke to ER in detail regarding case. Seizure precautions. Maintain medication compliance, hydration. Allergies Allergy/AdvReac Type Severity Reaction Status Date / Time No Known Allergies Allergy Verified 11/06/18 18:13 Active Medications Carbamazepine (Tegretol -) 200 mg PO BID [facility] Last Admin: 11/07/18 21:32 Dose: 200 mg Divalproex Sodium (Depakote *Er* -) 750 mg PO BID [facility] Last Admin: 11/07/18 21:32 Dose: 750 mg Fluoxetine HCl (Prozac -) 10 mg PO DAILY [facility] Last Admin: 11/07/18 09:45 Dose: 10 mg Levetiracetam (Keppra -) 500 mg PO BID [facility] Last Admin: 11/07/18 21:32 Dose: 500 mg PHYSICAL EXAMINATION Vital Signs Temperature 98 F 11/08/18 06:00 Pulse Rate 56 L 11/08/18 06:00 Respiratory Rate 20 11/08/18 06:00 Blood Pressure 131/63 11/08/18 06:00 O2 Sat by Pulse Oximetry (%) 97 11/07/18 21:00 GENERAL: Awake, alert, and fully oriented, in no acute distress. HEAD: Normal with no signs of trauma. EYES: Pupils equal, round and reactive to light, extraocular movements intact, sclera anicteric, conjunctiva clear. EARS, NOSE, THROAT: Ears normal, nares patent, oropharynx clear without exudates. Moist mucous membranes. NECK: Normal range of motion, supple LUNGS: Breath sounds equal, clear to auscultation bilaterally. No wheezes, and no crackles. No accessory muscle use. HEART: Regular rate and rhythm, normal S1 and S2 without murmur, rub or gallop. ABDOMEN: Soft, nontender, not distended, normoactive bowel sounds, no guarding, no rebound, no masses. MUSCULOSKELETAL: 5/5 motor strength UE, LE NEUROLOGICAL: Cranial nerves II-XII intact. Normal speech. 5/5 motor strength UE, LE. sensation intact. w/o cerebellar signs. without pronator drift CBCD WBC 3.9 K/mm3 (4.0-10.0) L 11/08/18 06:10 RBC 3.89 M/mm3 (4.00-5.60) L 11/08/18 06:10 Hgb 12.4 GM/dL (11.7-16.9) 11/08/18 06:10 Hct 36.0 % (35.4-49) 11/08/18 06:10 MCV 92.6 fl (80-96) 11/08/18 06:10 MCHC 34.4 g/dl (32.0-35.9) 11/08/18 06:10 RDW 13.6 % (11.9-15.9) 11/08/18 06:10 Plt Count 102 K/MM3 (134-434) L 11/08/18 06:10 MPV 9.0 fl (7.5-11.1) 11/08/18 06:10 CMP Sodium 139 mmol/L (136-145) 11/08/18 06:10 Potassium 3.5 mmol/L (3.5-5.1) 11/08/18 06:10 Chloride 104 mmol/L (98-107) 11/08/18 06:10 Carbon Dioxide 30 mmol/L (21-32) 11/08/18 06:10 Anion Gap 6 MMOL/L (8-16) L 11/08/18 06:10 BUN 11.8 mg/dL (7-18) 11/08/18 06:10 Creatinine 0.7 mg/dL (0.55-1.3) 11/08/18 06:10 Random Glucose 73 mg/dL (74-106) L 11/08/18 06:10 Calcium 8.4 mg/dL (8.5-10.1) L 11/08/18 06:10 Total Bilirubin 0.5 mg/dL (0.2-1) 11/08/18 06:10 AST 32 U/L (15-37) 11/08/18 06:10 ALT 32 U/L (13-61) 11/08/18 06:10 Alkaline Phosphatase 51 U/L (45-117) 11/08/18 06:10 Total Protein 7.0 g/dl (6.4-8.2) 11/08/18 06:10 Albumin 3.0 g/dl (3.4-5.0) L 11/08/18 06:10 CARDIAC ENZYMES Creatine Kinase 107 U/L (26-308) 11/06/18 17:41 Troponin I < 0.02 ng/ml (0.00-0.05) 11/06/18 17:41 Diagnostic: Head CT - no acute findings Carotid Ultrasound, Bilateral - moderate calcified atheroscleortic plaque formation at the bifucations MRI Brain - no acute changes, chronic changes noted. ASSESSMENT/PLAN 63 y/o M with PMH sz d/o (dx 10 yrs ago. on carbamezipine, keppra, depakote), depression, psychosis, constipation, hx L frontal and parietal craniotomy (s/p trauma), who presents to the ED s/p witnessed seizure. As per patient, he fell when he was in his [facility]. He had a witnessed seizure with tonic clonic movements on day of admission, however no tongue biting or urinary or bowel incontinence. Stated that he hit his head. When pt arrived to ED, NIHSS was done as pt had R sided facial droop, RUE drift, was found to have score of 4. Last known well 3pm DOA. Was not tPA as outside window and sx improved. Unclear whether sx stemmed from sz or were related to cva. Without FAIRCHILD , fever, chills, SOB, chest pain or changes in urinary or bowel function. Pt is compliant with his sz meds. However states that he has sz "on and off." Ambulates w cane. MRI completed with evidence of chronic changes, no acute changes. Carotid Dopplers also completed and without high-grade stenosis, though MRI did mention possible decreased flow in left internal carotid arteryand consider further vascular workup, will defer to primary team. Depakote increased to 750mg on night of admission when I spoke to ER in detail regarding case. Seizure precautions. Maintain medication compliance, hydration. no further neurologic recommendations at this time.
--- NOTE | 2018-11-08 10:45 | EKG ---
Test Reason : Blood Pressure : / mmHG Vent. Rate : 064 BPM Atrial Rate : 064 BPM P-R Int : 178 ms QRS Dur : 100 ms QT Int : 404 ms P-R-T Axes : 069 070 065 degrees QTc Int : 416 ms NORMAL SINUS RHYTHM NORMAL ECG NO PREVIOUS ECGS AVAILABLE Confirmed by JUVE CLARK MD ([id number]) on 11/08/2018 10:45:23 AM Referred By: Confirmed By:JUVE CLARK MD
--- NOTE | 2018-11-08 12:54 | PN ---
Physical Exam: SUBJECTIVE: Patient seen and examined at bedside. No sz overnight. OBJECTIVE: Vital Signs Period Temp Pulse Resp BP Sys/Beach Pulse Ox Last 24 Hr 97.6 F-98.2 F 54-64 18-20 129-144/63-94 97-98 GENERAL: AAO x 3; in NAD HEAD: Normal with no signs of trauma. EYES: Pupils equal, round and reactive to light, extraocular movements intact, sclera anicteric, conjunctiva clear. EARS, NOSE, THROAT: Ears normal, nares patent, oropharynx clear without exudates. Moist mucous membranes. NECK: supple LUNGS: Breath sounds equal, clear to auscultation bilaterally. No wheezes, and no crackles. No accessory muscle use. HEART: Regular rate and rhythm, normal S1 and S2 without murmur, rub or gallop. ABDOMEN: soft, nontender, nondistended MUSCULOSKELETAL: 5/5 motor strength UE, LE NEUROLOGICAL: Cranial nerves II-XII intact. Normal speech. 5/5 motor strength UE, LE. sensation intact. +resting tremor LUE Laboratory Results 11/08/18 11/08/18 06:10 06:10 WBC 3.9 L RBC 3.89 L Hgb 12.4 Hct 36.0 MCV 92.6 MCH 31.9 MCHC 34.4 RDW 13.6 Plt Count 102 L MPV 9.0 Absolute Neuts (auto) 1.3 L Neutrophils % 33.3 L Lymphocytes % 50.8 H Monocytes % 15.3 H Eosinophils % 0.3 D Basophils % 0.3 Nucleated RBC % 0 Sodium 139 Potassium 3.5 Chloride 104 Carbon Dioxide 30 Anion Gap 6 L BUN 11.8 Creatinine 0.7 Est GFR (CKD-EPI)AfAm 114.78 Est GFR (CKD-EPI)NonAf 99.03 Random Glucose 73 L Calcium 8.4 L Total Bilirubin 0.5 AST 32 ALT 32 Alkaline Phosphatase 51 Total Protein 7.0 Albumin 3.0 L ASSESSMENT/PLAN: 63 y/o M with PMH sz d/o (on carbamezipine, keppra, depakote), depression, psychosis, constipation, hx L frontal and parietal craniotomy (s/p trauma), who presents to the ED s/p witnessed seizure. #Seizure episode -c/w depakote increased dose of 750mg BID, carbamezepine, keppra -AE levels WNL; keppra pending -sz precautions -neuro consult: Dr. Matos #R facial droop -MRI brain w decreased laminar flow in L carotid a. will eval further w/ MRA neck, brain -may need vascular consult pending results #Thrombocytopenia -may be 2/2 anti epileptics; stable -c/t monitor #F/E/N no need for IVF continue to follow lytes reg diet #PPX SCD's. follow thrombocytopenia #Dispo cont'd monitoring on tele Visit type - Emergency Visit Emergency Visit: No - New Patient This patient is new to me today: No - Critical Care Critical Care patient: No
[2018-11-08] MEDS: FLUoxetine HCL 10 MG CAPSULE (FP) PO SCH (14:18)
[2018-11-09 05:57] LABS: BASO % 0.3 % (0-2.0); EOS % 0.3 % (0-4.5); HEMATOCRIT 44.4 % (35.4-49); HEMOGLOBIN 15.3 GM/dL (11.7-16.9); MCHC 34.4 g/dl (32.0-35.9); MEAN CELL VOLUME 92.8 fl (80-96); MEAN PLT VOLUME 8.9 fl (7.5-11.1); NEUT % 38.4 % (42.8-82.8); PLATELET COUNT 111 K/MM3 (134-434); RBC 4.78 M/mm3 (4.00-5.60); RDW 13.6 % (11.9-15.9); WHITE BLOOD COUNT 5.5 K/mm3 (4.0-10.0)
[2018-11-09 07:38] LABS: CALCIUM 9.1 mg/dL (8.5-10.1); CREATININE 0.8 mg/dL (0.55-1.3); MAGNESIUM 1.7 mg/dL (1.8-2.4); PHOSPHOROUS 3.8 mg/dL (2.5-4.9); POTASSIUM 3.7 mmol/L (3.5-5.1)
[2018-11-09] MEDS ORDERED: MAGNESIUM OXIDE 400 MG TABLET (FP) PO ONE (08:45)
[2018-11-09] MEDS ORDERED: PT OWN MED DRAWER 7, Y5N ONE ×2 (10:01→23:35)
[2018-11-09] MEDS: FLUoxetine HCL 10 MG CAPSULE (FP) PO SCH (10:06)
[2018-11-09] MEDS: carBAMazepine 200 MG TABLET PO SCH ×2 (10:06→23:39)
[2018-11-09] MEDS: DIVALPROEX NA *ER* EXTEND REL 250 MG TABLET.SA PO SCH ×2 (10:06→23:39)
[2018-11-09] MEDS: levETIRAcetam 500 MG TABLET (FP) PO SCH ×2 (10:06→23:39)
--- NOTE | 2018-11-09 10:31 | CONSULT ---
Admitting History and Physical - Primary Care Physician PCP: Neela Melendez - Admission History of Present Illness: Per EMR- 63 y/o M with PMH sz d/o (dx 10 yrs ago. on carbamezipine, keppra, depakote), depression, psychosis, constipation, hx L frontal and parietal craniotomy (s/p trauma), who presents to the ED s/p witnessed seizure. Per pt, he fell when he was in his NH at [facility]. Had a witnessed sz with tonic clonic movements , however no tongue biting or urinary or bowel incontinence. States that he hit his head. When pt arrived to ED, NIHSS was done as pt had R sided facial droop, RUE drift. Was found to have score of 4. Last known well 3pm DOA. Was not tPA as outside window and sx improved. Unclear whether sx stemmed from sz or were related to cva. Without FAIRCHILD, fever, chills, SOB, chest pain or changes in urinary or bowel function. Pt is compliant with his sz meds. However states that he has sz "on and off." Ambulates w cane Head CT - no acute findings Carotid Ultrasound, Bilateral - moderate calcified atherosclerotic plaque formation at the bifucations MRI Brain - no acute changes, chronic changes noted. Selected Entries 11/07/18 11/07/18 11/08/18 16:06 18:00 02:00 Breakfast Lunch 100% Supper 100% Temperature 97.8 F 11/08/18 11/08/18 11/08/18 06:00 10:00 11:11 Breakfast 100% Lunch Supper Temperature 98 F 97.6 F 11/08/18 11/08/18 11/08/18 14:26 18:00 22:00 Breakfast Lunch Supper 100% Temperature 98.0 F 98.0 F 98.5 F 11/09/18 11/09/18 11/09/18 02:00 06:00 10:28 Breakfast 75% Lunch Supper Temperature 98.8 F 98.1 F History Source: Medical Record Limitations to Obtaining History: Clinical Condition - Smoking History Smoking history: Former smoker Have you smoked in the past 12 months: No Aproximately how many cigarettes per day: 2,017 If you are a former smoker, when did you quit?: 3 years ago - Alcohol/Substance Use Hx Alcohol Use: No History - Admission Reason For Visit: POST-ICTAL HEMIPLEGIA,SEIZURE - Diagnostics CT Scan: Report Reviewed MRI: Report Reviewed - General Mental Status: Alert and Oriented, Awake and Alert, Able to Follow Commands, Vague Attention: Distractible, Mild Impairment Ability to Follow Directions: Good Head/Neck Control: Good - Hearing Hearing: Normal Speech Evaluation - Communication Primary Language: POLISH Communication: Yes: Aphasia (anomia, paraphasic erors with fair functional communication, suspect this is pt's baseline) Oral Expression Ability: Yes: Mild Impairment, Moderate Impairment - Speech Production Able to Make Needs Known: Yes: Mildly Impaired, Moderately Impaired Intelligibility: Yes: Mildly Impaired - Speech Characteristics Voice Loudness: Normal Voice Pitch: Yes: Normal Voice Phonatory-based Quality: Yes: Normal Speech Pattern: Impaired Speech Clarity: < 75% Nasal Resonance: Normal Articulation: Yes: Precise - Language/Auditory Comprehension Follows: Yes: 1 Stage Simple Commands Observation: Able to respond to yes/no queries: Yes, Yes/No Confusion: No, Comprehends Conversational Speech: Yes - Language/Verbal Expression Aphasia: Yes: Anomia, Paraphrasic Errors, Neologisms, Grammatic Errors Able to Respond to Simple Queries: Yes: Mildly Impaired, Moderately Impaired Able to Communicate Wants and Needs: Yes: Mildly Impaired, Moderately Impaired Functional Communication Status: Yes: Mildly Impaired, Moderately Impaired - Swallow Evaluation/Bedside Assessment Current Nutritional Intake: Regular, Thin Liquids Oral Secretions: Yes: WFL Facial Symmetry at Rest: Symmetrical Facial Symmetry on Retraction: Symmetrical Against Resistance Opening: Normal Against Resistance Closing: Normal Pucker Lips: Normal Smile: Normal Lingual Movement: Normal, Symmetric Lingual Speed of Movement: Normal Lingual Movement Strgth Against Opposition: Normal Lingual Movement Characteristics: Normal Velopharyngeal Movement: Normal Laryngeal Movement: Able to Palpate Rate of Intake: WFL Bolus Size: WFL Labial Seal: WFL Chewing: WFL Oral Prep Time: WFL A-P Transit: WFL Timing of Swallow: WFL Coughing/Throat Clear: No Change in Voice: No Recommendations - Speech Evaluation, Impression/Plan Impression: Swalloqwing intact. Aphasia with fair functional communication, suspect baseline from HI/Craniotomies? - Dysphagia Impressions/Plan Swallowing Skills: WFL Dysphagia Impressions: No Impairment *Silent aspiration: cannot be R/O at bedside - Recommendations Diet Consistency: Regular Medication Administration: Whole with water Liquids: Thin Liquids
--- NOTE | 2018-11-09 12:16 | ECHO ---
Name: SOCRATES TEJEDA Exam:Adult Echocardiogram Study Date: 11/09/2018 08:30 AM Age: 63 yrs Reason For Study: POSSIBLE STROKE VS SEIZURE Height: 73 in Weight: 174 lb BSA: 2.0 m2 MMode/2D Measurements & Calculations IVSd: 0.76 cm Ao root diam: 3.3 cm LVIDd: 5.0 cm LVIDs: 3.3 cm LVPWd: 0.82 cm EDV(Teich): 119.6 ml LVOT diam: 2.0 cm ESV(Teich): 43.2 ml Doppler Measurements & Calculations MV E max evan: 47.4 cm/sec Ao V2 max: 111.0 cm/sec MV A max evan: 86.9 cm/sec Ao max P.9 mmHg MV E/A: 0.55 Ao V2 mean: 79.7 cm/sec MV dec time: 0.21 sec Ao mean P.9 mmHg Ao V2 VTI: 23.0 cm ALIZA(I,D): 2.3 cm2 ALIZA(V,D): 2.5 cm2 LV V1 max P.0 mmHg MR max evan: 212.3 cm/sec LV V1 mean P.6 mmHg MR max P.0 mmHg LV V1 max: 86.8 cm/sec LV V1 mean: 59.3 cm/sec LV V1 VTI: 16.7 cm SV(LVOT): 53.4 ml TR max evan: 215.8 cm/sec TR max P.6 mmHg Med Peak E' Evan: 6.4 cm/sec Med E/e': 7.4 Lat Peak E' Evan: 7.3 cm/sec Lat E/e': 6.5 Procedure A complete two-dimensional transthoracic echocardiogram was performed (2D, M-mode, Doppler and color flow Doppler). Left Ventricle The left ventricle is normal in size. Left ventricular systolic function is normal. Ejection Fraction = 60- 65%. Grade I diastolic dysfunction, (abnormal relaxation pattern). Ratio E/E'= 7. No regional wall mo tion abnormalities noted. Right Ventricle The right ventricle is normal size. The right ventricular systolic function is normal. RV systolic TD I is 16 cm/s. Atria The left atrial size is normal. Right atrial size is normal. Mitral Valve The mitral valve is normal in structure and function. There is trace to mild mitral regurgitation. Tricuspid Valve The tricuspid valve is normal in structure and function. There is mild tricuspid regurgitation. Pulmo nary artery systolic pressure is at least 22 mmHg assuming RA pressure of 3 mmHg. Aortic Valve There is mild aortic sclerosis.;. No aortic regurgitation is present. Pulmonic Valve The pulmonic valve is not well visualized. Great Vessels The aortic root is normal size. Pericardium/Pleura There is no pericardial effusion. Interpretation Summary The left ventricle is normal in size. Left ventricular systolic function is normal. No regional wall motion abnormalities noted. Ejection Fraction = 60-65%. Grade I diastolic dysfunction, (abnormal relaxation pattern). Ratio E/E'= 7 The right ventricular systolic function is normal. The left atrial size is normal. Right atrial size is normal. There is trace to mild mitral regurgitation. There is mild tricuspid regurgitation. Pulmonary artery systolic pressure is at least 22 mmHg assuming RA pressure of 3 mmHg There is mild aortic sclerosis. There is no pericardial effusion. Previous study is not available for comparison Naren Gaitan MD 11/09/2018 12:15 PM
--- NOTE | 2018-11-09 12:32 | PN ---
Teaching Attending Note Name of Resident: Walker Alonso ATTENDING PHYSICIAN STATEMENT I saw and evaluated the patient. I reviewed the resident's note and discussed the case with the resident. I agree with the resident's findings and plan as documented. SUBJECTIVE:asymptomatic. no seiuzre like activity. denies Cp, SOB, fever, chills , N/V/C/D OBJECTIVE: Last Vital Signs Temp Pulse Resp BP Pulse Ox 98.1 F 77 18 131/84 97 11/09/18 10:00 11/09/18 10:00 11/09/18 10:00 11/09/18 10:00 11/09/18 09:00 General NAD ASSESSMENT AND PLAN: 63yo M with PMH seizure presented to the ER with seizure like activity and noted to have R facial droop and RUE weakness 1. Breakthrough seizure- no signs of infection. depakote increased to 750mg. valproic and cabmazepime levels good. keppra level pending. neuro on board 2. R facial droop- r/o CVA vs todds paralysis. imaging noted. Brain MRI showing decreased flow through L carotid artery. concern for stenosis although doppler were negative. unable to obtain CTA due to poor peripheral access. will get MRA of head and neck to further evaluate. may need vascular eval. neuro on board 3. Thrombocytopenia- stable. no signs of bleeding. u/s negative for spleenomegaly 4. Sinus bradycardia- asymptomatic. check EKG. responds to light activity 5. DVT ppx- EAM 6. possible d/c pending results of imaging
--- NOTE | 2018-11-09 20:31 | PN ---
Physical Exam: SUBJECTIVE: Patient seen and examined in bed. Pt offers no currnet complaints. Pt denies FAIRCHILD, change of vision, CP, SOB. Pt states he is passing urine and stool normally. PT denies any numbness and tingling. No NVFD. OBJECTIVE: Vital Signs Period Temp Pulse Resp BP Sys/Beach Pulse Ox Last 24 Hr 98.1 F-99.7 F 62-98 18-20 123-151/54-91 96-97 GENERAL: The patient is awake, alert, and fully oriented, in no acute distress. Speaks Sami. HEAD: Normal with no signs of trauma. EYES: PERRL, extraocular movements intact, sclera anicteric, conjunctiva clear. No ptosis. ENT: Ears normal, nares patent, moist mucous membranes. NECK: Trachea midline, full range of motion, supple. No JVD LUNGS: Breath sounds equal, clear to auscultation bilaterally, no wheezes, no crackles, no accessory muscle use. HEART: Regular rate and rhythm, S1, S2 without murmur, rub or gallop. ABDOMEN: Soft, nontender, nondistended, normoactive bowel sounds, no guarding, no rebound, no hepatosplenomegaly, no masses. EXTREMITIES: 2+ pulses, warm, well-perfused, no edema. NEUROLOGICAL: Cranial nerves II through XII grossly intact. Normal speech, gait not observed. Strength 5/5 PSYCH: Normal mood, normal affect. SKIN: Warm, dry, normal turgor, no rashes or lesions noted Laboratory Results - last 24 hr 11/06/18 11/09/18 11/09/18 20:30 05:15 05:15 WBC 5.5 RBC 4.78 Hgb 15.3 Hct 44.4 D MCV 92.8 MCH 32.0 MCHC 34.4 RDW 13.6 Plt Count 111 L MPV 8.9 Absolute Neuts (auto) 2.1 Neutrophils % 38.4 L Lymphocytes % 48.0 H Monocytes % 13.0 H Eosinophils % 0.3 Basophils % 0.3 Nucleated RBC % 0 Sodium 138 Potassium 3.7 Chloride 101 Carbon Dioxide 29 Anion Gap 8 BUN 12.0 Creatinine 0.8 Est GFR (CKD-EPI)AfAm 108.65 Est GFR (CKD-EPI)NonAf 93.74 Random Glucose 75 Calcium 9.1 Phosphorus 3.8 Magnesium 1.7 L Levetiracetam 16.0 Active Medications Current Medications Carbamazepine (Tegretol -) 200 mg PO BID [facility] Last Admin: 11/09/18 10:06 Dose: 200 mg Divalproex Sodium (Depakote *Er* -) 750 mg PO BID [facility] Last Admin: 11/09/18 10:06 Dose: 750 mg Fluoxetine HCl (Prozac -) 10 mg PO DAILY [facility] Last Admin: 11/09/18 10:06 Dose: 10 mg Levetiracetam (Keppra -) 500 mg PO BID [facility] Last Admin: 11/09/18 10:06 Dose: 500 mg ASSESSMENT/PLAN: 63 y/o M PMH seizure d/o presenting for care of recent seizure episodes # Seizure d/o - Cont. valproic acid at 750 mg - Carbemazepine levels WNL - Leviteracetam levels pending - Neuro consult placed # RIGHT facial droop - MRA done today 11/09/18 - f/u results - MRI demonstrates decreased flow through LEFT carotid artery - LEFT carotid artery dopler negative for stenosis # Thrombocytopenia - Cont. CBC - No clnical signs of bleeding/bruising # Bradycardia - EKG shows sinus bradycardia - repeat EKG #FEN - No standing fluids - Cont. to monitor electrolytes - Normal diet #prophylaxis - Regular ambulation # Dispo - Full code Visit type - Emergency Visit Emergency Visit: Yes ED Registration Date: 11/06/18 Care time: The patient presented to the Emergency Department on the above date and was hospitalized for further evaluation of their emergent condition. - New Patient This patient is new to me today: Yes Date on this admission: 11/09/18 - Critical Care Critical Care patient: No - Discharge Referral Referred to [facility] Med P.C.: No ATTENDING PHYSICIAN STATEMENT I saw and evaluated the patient. I reviewed the resident's note and discussed the case with the resident. I agree with the resident's findings and plan as documented. SUBJECTIVE: OBJECTIVE: ASSESSMENT AND PLAN:
[2018-11-10] MEDS ORDERED: PT OWN MED DRAWER 7, Y5N ONE ×4 (08:29→21:41)
[2018-11-10] MEDS: carBAMazepine 200 MG TABLET PO SCH ×2 (10:05→21:41)
[2018-11-10] MEDS: levETIRAcetam 500 MG TABLET (FP) PO SCH ×2 (10:05→21:40)
[2018-11-10] MEDS: DIVALPROEX NA *ER* EXTEND REL 250 MG TABLET.SA PO SCH ×2 (10:05→21:40)
[2018-11-10] MEDS: FLUoxetine HCL 10 MG CAPSULE (FP) PO SCH (10:05)
--- NOTE | 2018-11-10 14:30 | PN ---
Teaching Attending Note Name of Resident: Walker Alonso ATTENDING PHYSICIAN STATEMENT I saw and evaluated the patient. I reviewed the resident's note and discussed the case with the resident. I agree with the resident's findings and plan as documented. SUBJECTIVE: No complaints. No headache/visual disturbance, limb numbness/ weakness. OBJECTIVE: Afebrile, Hemodynamically Stable. Last Vital Signs Temp Pulse Resp BP Pulse Ox 97.9 F 80 18 115/74 96 11/10/18 10:00 11/10/18 10:00 11/10/18 10:00 11/10/18 10:00 11/09/18 21:00 HEENT - Atraumatic, Normocephalic. Heart - S1, S2, RRR Lungs - clear to auscultation. Abdomen - Soft, non-tender. Bowel Sounds normal. Extremities - no edema, no calf tenderness. Neuro - AAO x 3. extrusion technician intact. Tone/Power normal all 4 extremities. Laboratory Results - last 24 hr 11/06/18 20:30 Levetiracetam 16.0 Current Medications Generic Name Dose Route Start Last Admin Trade Name Melvin PRN Reason Stop Dose Admin Carbamazepine 200 mg 11/06/18 22:00 11/10/18 10:05 Tegretol - PO 200 mg BID SRIRAM Administration Divalproex Sodium 750 mg 11/06/18 22:00 11/10/18 10:05 Depakote *Er* - PO 750 mg BID SRIRAM Administration Fluoxetine HCl 10 mg 11/07/18 10:00 11/10/18 10:05 Prozac - PO 10 mg DAILY SRIRAM Administration Levetiracetam 500 mg 11/06/18 22:00 11/10/18 10:05 Keppra - PO 500 mg BID SRIRAM Administration Home Medications Medication Instructions Recorded Carbamazepine [Tegretol -] 200 mg PO BID 11/06/18 Fluoxetine HCl 10 mg PO DAILY 11/06/18 Levetiracetam 500 mg PO BID 11/06/18 Olanzapine [ZyPREXA -] 10 mg PO BID 11/06/18 Divalproex *ER* [Depakote *ER* -] 750 mg PO BID tablet. 11/10/18 ASSESSMENT AND PLAN: 63 year old male with history of Seizure Disorder presented to the ER with seizure like activity, noted to have R facial droop and RUE weakness, since resolved. 1. Alex's Paralysis s/p breakthrough seizure - Depakote dose increased. Continue Carbamazepine, Keppra. Neurology consulted. 2. Possible TIA - focal stenosis C2 segment of R ICA on MRA Brain. MRI Brain/ CT Head negative for acute intracranial findings. Vascular Surgery consulted for opinion re: imaging findings. Neurologically Stable. 3. Thrombocytopenia - Mild. No bruising/bleeding. for out-patient follow up. 4. Depression - continue Fluoxetine, Zyprexa. 5. DVT Px - SCDs.
--- NOTE | 2018-11-10 18:15 | PN ---
Physical Exam: SUBJECTIVE: Patient seen and examined at bedside, sitting in a chair. Pt offers no currnet complaints. Pt denies FAIRCHILD, change of vision, CP, SOB. Pt states he is passing urine and stool normally. PT denies any numbness and tingling. No NVFD. OBJECTIVE: Vital Signs Last Vital Signs Temp Pulse Resp BP Pulse Ox 97.9 F 80 18 115/74 96 11/10/18 10:00 11/10/18 10:00 11/10/18 10:00 11/10/18 10:11/09/18 21:00 GENERAL: The patient is awake, alert, and fully oriented, in no acute distress. Speaks Vietnamese. HEAD: Normal with no signs of trauma. EYES: PERRL, extraocular movements intact, sclera anicteric, conjunctiva clear. No ptosis. LUNGS: Breath sounds equal, clear to auscultation bilaterally, no wheezes, no crackles, no accessory muscle use. HEART: Regular rate and rhythm, S1, S2 without murmur, rub or gallop. ABDOMEN: Soft, nontender, nondistended, normoactive bowel sounds, no guarding, no rebound, no hepatosplenomegaly, no masses. EXTREMITIES: 2+ pulses, warm, well-perfused, no edema. Dry skin. Strength 5/5 in UE and LE. NEUROLOGICAL: + resting LEFT hand tremor. Mild RIGHT facial weakness, otherwise cranial nerves II through XII grossly intact. Normal speech, gait not observed. Strength 5/5 PSYCH: Normal mood, normal affect. SKIN: Warm, dry, normal turgor, no rashes or lesions noted Laboratory Results - last 24 hr 11/06/18 20:30 Levetiracetam 16.0 Active Medications Current Medications Carbamazepine (Tegretol -) 200 mg PO BID [facility] Last Admin: 11/10/18 10:05 Dose: 200 mg Divalproex Sodium (Depakote *Er* -) 750 mg PO BID [facility] Last Admin: 11/10/18 10:05 Dose: 750 mg Fluoxetine HCl (Prozac -) 10 mg PO DAILY [facility] Last Admin: 11/10/18 10:05 Dose: 10 mg Levetiracetam (Keppra -) 500 mg PO BID [facility] Last Admin: 11/10/18 10:05 Dose: 500 mg ASSESSMENT/PLAN: 63 y/o M PMH seizure d/o presenting for care of recent seizure episodes # Positive neck MRA - + focal stenosis seen in c2 (petrous segment) of the RIGHT ICA. - + atherosclerotic changes in "right common artery" ranging from 50% to 75-80% - Attempting to transfer pt to outside facility for vascular surgery # Seizure d/o - Cont. valproic acid at 750 mg - Carbemazepine levels WNL - Leviteracetam levels pending - Neuro consult placed # Thrombocytopenia - Cont. CBC - No clnical signs of bleeding/bruising #FEN - No standing fluids - Cont. to monitor electrolytes - Normal diet #prophylaxis - Regular ambulation # Dispo - Full code Visit type - Emergency Visit Emergency Visit: No - New Patient This patient is new to me today: No - Critical Care Critical Care patient: No - Discharge Referral Referred to [facility] Med P.C.: No ATTENDING PHYSICIAN STATEMENT I saw and evaluated the patient. I reviewed the resident's note and discussed the case with the resident. I agree with the resident's findings and plan as documented. SUBJECTIVE: OBJECTIVE: ASSESSMENT AND PLAN:
[2018-11-10] MEDS: ASPIRIN COATED 81 MG TABLET.EC PO SCH (21:40)
[2018-11-10] MEDS: ATORVASTATIN CA 40 MG TABLET (FP) PO SCH (21:40)
--- NOTE | 2018-11-11 08:04 | PN ---
Progress Note (short form) - Note Progress Note: NEUROSURGERY CONSULT DICTATED Chart reviewed Pt examined CT/MRI/MRA reviewed RH male with h/o sz on carbamezipine, keppra, depakote, L frontal and parietal craniotomy for trauma, depression, and psychosis was sent to the ED s/p witnessed seizure. Fell when at [employer]. + tonic clonic movements. Reports hitting his head. Initially with R sided facial droop and RUE drift which improved spontaneously . Having sz every other day/more frequently. Some B LE numbness and balance issues No H/A, N/V, diplopia, fever, chill, recent infection. PE: AF, VSS HEENT- B scalp scars healed; Neck- supple; Cor- RR; Lungs- CTA B; Abd- benign; Ext- no sign of DVT; 1+ pulses CN- intact; Motor- 4+ R DF, otherwise 5/5, no drift; Sensation- decreased B distal LE vibratory sensation; DTR- hyporeflexic B, toes upgoing B; Gait- not tested for safety reasons; Cerebellar- mild pastpointing B FTN Labs reviewed Head CT- L frontal and R FP craniotomies; B frontal > temporal encephalomalacia with atrophy Brain MRI- encephalomalacia most notable L > R frontal lobe anteriorly; periventricular small vessel dz; no acute ischemia Brain MRA- B M1 reduced flow Neck MRA- R CCA/ICA atherosclerotic dz with atherosclerosis and R ICA C2 segment stenosis B fronto-temporal posttraumatic encephalomalacia with sz No acute neurosurgical intervention indicated Ordinarily would consider plavix or AC to reduce intracranial thromboembolic risks, but given sz and risks of falls full dose AC may cause more harm than good R sided symptoms in ED not c/w R CCA/ICA (C1 and C2 segment) disease (would cause L sided symptoms instead) and more likely post-ictal or transiently decreased L MCA flow Neurology f/u for sz control optimization Consult neuro-interventional for possible tx of R C1 and C2 segment ICA disease
[2018-11-11 08:05] LABS: BASO % 0.3 % (0-2.0); EOS % 0.6 % (0-4.5); HEMATOCRIT 39.7 % (35.4-49); HEMOGLOBIN 13.5 GM/dL (11.7-16.9); LYMPH % 37.5 % (8-40); MCH 31.4 pg (25.7-33.7); MCHC 34.1 g/dl (32.0-35.9); MEAN CELL VOLUME 92.1 fl (80-96); MEAN PLT VOLUME 8.9 fl (7.5-11.1); MONO % 12.6 % (3.8-10.2); PLATELET COUNT 108 K/MM3 (134-434); RBC 4.31 M/mm3 (4.00-5.60); RDW 13.7 % (11.9-15.9); WHITE BLOOD COUNT 6.4 K/mm3 (4.0-10.0)
[2018-11-11 08:31] LABS: BLOOD UREA NITROGEN 14.4 mg/dL (7-18); CALCIUM 8.8 mg/dL (8.5-10.1); CREATININE 0.6 mg/dL (0.55-1.3); POTASSIUM 3.7 mmol/L (3.5-5.1)
[2018-11-11 09:15] LABS: MAGNESIUM 2.3 mg/dL (1.8-2.4)
[2018-11-11] MEDS ORDERED: PT OWN MED DRAWER 7, Y5N ONE ×3 (09:28→21:23)
[2018-11-11] MEDS: carBAMazepine 200 MG TABLET PO SCH ×2 (10:10→21:24)
[2018-11-11] MEDS: DIVALPROEX NA *ER* EXTEND REL 250 MG TABLET.SA PO SCH ×2 (10:10→21:24)
[2018-11-11] MEDS: FLUoxetine HCL 10 MG CAPSULE (FP) PO SCH (10:10)
[2018-11-11] MEDS: levETIRAcetam 500 MG TABLET (FP) PO SCH ×2 (10:10→21:24)
[2018-11-11] MEDS: ASPIRIN COATED 81 MG TABLET.EC PO SCH (10:10)
--- NOTE | 2018-11-11 12:10 | PN ---
Teaching Attending Note Name of Resident: Walker Alonso ATTENDING PHYSICIAN STATEMENT I saw and evaluated the patient. I reviewed the resident's note and discussed the case with the resident. I agree with the resident's findings and plan as documented. SUBJECTIVE: No complaints. No headache/visual disturbance, limb numbness/ weakness. OBJECTIVE: Afebrile, Hemodynamically Stable. Flat affect. Last Vital Signs Temp Pulse Resp BP Pulse Ox 97.6 F 69 18 125/75 98 11/11/18 10:00 11/11/18 10:00 11/11/18 10:00 11/11/18 10:11/11/18 10:00 HEENT - Old cranitomy scars healed Heart - S1, S2, RRR Lungs - clear to auscultation. Abdomen - Soft, non-tender. Bowel Sounds normal. Extremities - no edema, no calf tenderness. Neuro - AAO x 3. heating element winder intact. Tone/Power normal all 4 extremities. L sided resting tremor LUE. Laboratory Results - last 24 hr 11/11/18 11/11/18 07:51 07:51 WBC 6.4 RBC 4.31 Hgb 13.5 Hct 39.7 MCV 92.1 MCH 31.4 MCHC 34.1 RDW 13.7 Plt Count 108 L MPV 8.9 Absolute Neuts (auto) 3.1 Neutrophils % 49.0 D Lymphocytes % 37.5 D Monocytes % 12.6 H Eosinophils % 0.6 D Basophils % 0.3 Nucleated RBC % 0 Sodium 139 Potassium 3.7 Chloride 102 Carbon Dioxide 30 Anion Gap 7 L BUN 14.4 Creatinine 0.6 Est GFR (CKD-EPI)AfAm 122.29 Est GFR (CKD-EPI)NonAf 105.51 Random Glucose 78 Calcium 8.8 Magnesium 2.3 Current Medications Generic Name Dose Route Start Last Admin Trade Name Freq PRN Reason Stop Dose Admin Aspirin 81 mg 11/10/18 19:30 11/11/18 10:10 Ecotrin - PO 81 mg DAILY SRIRAM Administration Atorvastatin Calcium 40 mg 11/10/18 22:00 11/10/18 21:40 Lipitor - PO 40 mg HS SRIRAM Administration Carbamazepine 200 mg 11/06/18 22:00 11/11/18 10:10 Tegretol - PO 200 mg BID SRIRAM Administration Divalproex Sodium 750 mg 11/06/18 22:00 11/11/18 10:10 Depakote *Er* - PO 750 mg BID SRIRAM Administration Fluoxetine HCl 10 mg 11/07/18 10:00 11/11/18 10:10 Prozac - PO 10 mg DAILY SRIRAM Administration Levetiracetam 500 mg 11/06/18 22:00 11/11/18 10:10 Keppra - PO 500 mg BID SRIRAM Administration Home Medications Medication Instructions Recorded Carbamazepine [Tegretol -] 200 mg PO BID 11/06/18 Fluoxetine HCl 10 mg PO DAILY 11/06/18 Levetiracetam 500 mg PO BID 11/06/18 Olanzapine [ZyPREXA -] 10 mg PO BID 11/06/18 Divalproex *ER* [Depakote *ER* -] 750 mg PO BID #0 tablet. 11/10/18 ASSESSMENT AND PLAN: 63 year old male with history of Seizure Disorder, s/p L Frontal/Parietal craniotomy due to ICH sec to trauma, Depression with Psychosis, presented to the ER with seizure like activity, noted to have R facial droop and RUE weakness , which has since resolved. Head CT- L frontal and R FP craniotomies; B frontal > temporal encephalomalacia with atrophy Brain MRI- encephalomalacia most notable L > R frontal lobe anteriorly; periventricular small vessel dz; no acute ischemia Brain MRA- B M1 reduced flow Neck MRA- R ICA atherosclerosis with focal stenosis R ICA C2 segment. 1. Alex's Paralysis s/p breakthrough seizure - resolved. Depakote dose increased. Continue Carbamazepine, Keppra. Neurology consulted. 2. Focal stenosis C2 segment of R ICA on MRA Brain. MRI Brain/CT Head negative for acute intracranial findings. Vascular Surgery consulted for opinion re: imaging findings. Neurologically Stable. Presenting neurological deficits do not coincide with location of stenotic lesio, so pialey TIA. Will clarify findings with Radiology given absence of stenosis on Carotid Duplex. If necessary, patient will require transfer for Neuro-interventional consultation. 3. Thrombocytopenia - Mild. No bruising/bleeding. for out-patient follow up. 4. Depression - continue Fluoxetine, Zyprexa. 5. DVT Px - SCDs. Heparin held due to relative thrombocytopenia and Hx ICH.
--- NOTE | 2018-11-11 12:50 | CONS ---
DATE OF CONSULTATION: DATE OF DICTATION: 11/11/2018 REQUESTING PHYSICIAN: Chris Durant MD CHIEF COMPLAINT: Seizure disorder and carotid stenosis. HISTORY OF PRESENT ILLNESS: The patient is a 63-year-old right-handed male with history of head trauma status post bilateral craniotomy approximately 10 years earlier and post-traumatic seizure disorder, who complains of more frequent seizures recently. He also has a history of depression and psychosis after his head injury. He has been on Tegretol, Keppra, and Depakote, but continues to have seizure activities almost every other day. They have become more frequent. He complains of no headache, nausea, vomiting. He does have some distal lower extremity numbness. He also has some balance issues. He denies diplopia or ear recent infections. PAST MEDICAL HISTORY: Is significant for craniotomy for trauma, seizure disorder, depression, psychosis. MEDICATIONS: Current medications include Tegretol, Depakote, Keppra, Prozac, Lipitor, baby aspirin. ALLERGIES: There are no known drug allergies. FAMILY HISTORY: Noncontributory. SOCIAL HISTORY: He does not smoke, but had used recreational drugs previously. He lives in a alf. REVIEW OF SYSTEMS: Otherwise negative for other major constitutional, head and neck, cardiovascular, pulmonary, gastrointestinal, genitourinary, endocrinologic, neurologic, or psychologic problems except for the above. PHYSICAL EXAMINATION: Vital signs: Temperature is 97.6, blood pressure is 127/88 with a pulse rate of 66, O2 saturation is 98% on room air. HEENT: Examination shows mild healed scalp incisions and scars. Neck: Supple. There is no carotid bruit. Coronary: Examination demonstrates regular rhythm. Lungs: Clear bilaterally. Abdomen: Benign. Extremities: Examination shows no signs of DVT. Distal pulses are 1+. Neurologic: He is awake and alert and oriented x2. Cranial nerve examination is intact 2-12. Motor examination shows 5/5 strength without drift. Right foot dorsiflexion is 4+/5. Sensory examination shows decreased lower extremity distal vibratory sensation and light touch sensation. Deep tendon reflexes are hyporeflexive throughout. There is no pathologic long tract sign except for upgoing toes bilaterally. Gait is not tested for safety reasons. Cerebellar examination shows mild pointing bilaterally. LABORATORY EXAMINATION: Shows the white blood cell count of 6.4, initially it was 3.4, hemoglobin is 13.5, and platelet count is 108,000. INR is 1.03. Serum sodium is 139, BUN is 14, creatinine is 0.6. Urinalysis negative. Valproic acid level was 72.3. Tegretol level was 6.6. Keppra level was 16. CT scan of the head done on November 06 demonstrated chronic bilateral craniotomies. There is a left frontal greater than right frontal encephalomalacia as well as the anterior bilateral temporal changes left greater than right. There is some cerebral atrophy as a result. There is no hydrocephalus or acute bleed. MRI of the brain on November 07 demonstrated encephalomalacia at the left greater than right frontal and temporal lobes and mild cerebral atrophy. There is mild ventricular dilatation as a result. There is increased intraluminal signal within the periphery of the left internal carotid artery with possible stagnant flow. MRA of the neck reported right common carotid and internal carotid disease with 50% to 75% stenosis. There is a possible ulcerated plaque. There is stenosis of the right C2 segment of the right internal carotid artery. There is a patent left common carotid artery and mild atherosclerosis of the left internal carotid artery. MRA of the brain demonstrated patent internal carotid artery intracranially as well as middle anterior and posterior cerebral arteries. There might be slight atherosclerosis of the proximal bilateral A1 segment. IMPRESSION: 1. History of a head trauma with bifrontal and temporal encephalomalacia and likely resultant post-traumatic seizure disorder 2. Right common carotid as well as right C1 and C2 segment carotid artery stenosis. RECOMMENDATIONS: The patient presents with mild right hemiparesis which had resolved spontaneously. He also has a history of right head injury status post bilateral craniotomies. Unfortunately, that has likely left him with some post-traumatic seizure disorders. His frequencies have increased. I will recommend further neurology followup and treatment to augment the treatment of a seizure disorder. He came in with right hemiparesis which is likely the result of the decreased distal middle cerebral artery flow. He is on baby aspirin and wanting considered adding Plavix for his current symptoms. The right-sided symptoms are obviously not related to the right C1 and C2 segment stenosis of the right internal carotid artery, and the opinion was the neuro interventional specialist could be considered if he becomes symptomatic from a right-sided sclerotic disease. The above was discussed with patient at beside in detail. I do not advocate full dose anticoagulation because of his frequent seizures and falls which can cause more bleeding problems as well as causing more harm than good. The pros and cons of treatment approaches were discussed with the patient at bedside, as well. All questions were answered. CONCHITA FORREST M.D. [facility]/[id number]
--- NOTE | 2018-11-11 16:23 | PN ---
Physical Exam: SUBJECTIVE: Patient seen and examined at bedside. He is communicating well and has no complaints today. Pt says he has no FAIRCHILD or vision changes. Pt denies any weakness, lethargy, numbness, and tingling. He denies NVFD. OBJECTIVE: Vital Signs Last Vital Signs Temp Pulse Resp BP Pulse Ox 97.9 F 72 18 110/65 98 11/11/18 14:00 11/11/18 14:00 11/11/18 14:00 11/11/18 14:00 11/11/18 10:00 GENERAL: The patient is awake, alert, and fully oriented, in no acute distress. Speak Upper Sorbian. HEAD: Normocephalic. Well healed scars. EYES: PERRLA, extraocular movements intact, sclera anicteric, conjunctiva clear. No ptosis. ENT: Ears normal, nares patent, oropharynx clear without exudates, moist mucous membranes. NECK: Trachea midline, full range of motion, supple. LUNGS: Breath sounds equal, clear to auscultation bilaterally, no wheezes, no crackles, no accessory muscle use. HEART: Regular rate and rhythm, S1, S2 without murmur, rub or gallop. ABDOMEN: Soft, nontender, nondistended, normoactive bowel sounds, no guarding, no rebound, no hepatosplenomegaly, no masses. EXTREMITIES: 2+ pulses, warm, well-perfused, no edema. NEUROLOGICAL: BL UE and LE strength 5/5. Cranial nerves II through XII grossly intact. Normal speech, gait not observed. PSYCH: Normal mood, normal affect. SKIN: Warm, dry, normal turgor, no rashes or lesions noted Laboratory Results - last 24 hr 11/11/18 11/11/18 07:51 07:51 WBC 6.4 RBC 4.31 Hgb 13.5 Hct 39.7 MCV 92.1 MCH 31.4 MCHC 34.1 RDW 13.7 Plt Count 108 L MPV 8.9 Absolute Neuts (auto) 3.1 Neutrophils % 49.0 D Lymphocytes % 37.5 D Monocytes % 12.6 H Eosinophils % 0.6 D Basophils % 0.3 Nucleated RBC % 0 Sodium 139 Potassium 3.7 Chloride 102 Carbon Dioxide 30 Anion Gap 7 L BUN 14.4 Creatinine 0.6 Est GFR (CKD-EPI)AfAm 122.29 Est GFR (CKD-EPI)NonAf 105.51 Random Glucose 78 Calcium 8.8 Magnesium 2.3 Active Medications Aspirin (Ecotrin -) 81 mg PO DAILY [facility] Last Admin: 11/11/18 10:10 Dose: 81 mg Atorvastatin Calcium (Lipitor -) 40 mg PO HS [facility] Last Admin: 11/10/18 21:40 Dose: 40 mg Carbamazepine (Tegretol -) 200 mg PO BID [facility] Last Admin: 11/11/18 10:10 Dose: 200 mg Divalproex Sodium (Depakote *Er* -) 750 mg PO BID [facility] Last Admin: 11/11/18 10:10 Dose: 750 mg Fluoxetine HCl (Prozac -) 10 mg PO DAILY [facility] Last Admin: 11/11/18 10:10 Dose: 10 mg Levetiracetam (Keppra -) 500 mg PO BID [facility] Last Admin: 11/11/18 10:10 Dose: 500 mg ASSESSMENT/PLAN: 63 y/o M s/p seizure with post ictal paralysis # Alex's paralysis - Facial weakness and RUE weakness NOT present today - Cont. current seizure medications - Neurology consulted # Right ICA stenosis - No current neurological symptoms - Recommended repeat head+neck CT to confirm finding. If significant transfer pt to interventional neurology. - Unable to obtain IV access with 20 gauge catheter (x2, later with US guidance ) for IV contrast to repeat CT. Will attempt at a later time. #Thrombocytopenia - Platelets monitored daily - No bleeding or bruising present - Consistent with use of anti-seizure treatment # Depression - Pt not feeling depressed - Cont. current regimen # F/E/N - No standing fluids - Cont. to monitor electrolytes - Regular diet # Prophylaxis - Early ambulation # Dispo Full code Visit type - Emergency Visit Emergency Visit: No - New Patient This patient is new to me today: No - Critical Care Critical Care patient: No - Discharge Referral Referred to [facility] No ATTENDING PHYSICIAN STATEMENT I saw and evaluated the patient. I reviewed the resident's note and discussed the case with the resident. I agree with the resident's findings and plan as documented. SUBJECTIVE: OBJECTIVE: ASSESSMENT AND PLAN:
[2018-11-11] MEDS: ATORVASTATIN CA 40 MG TABLET (FP) PO SCH (21:24)
[2018-11-12] MEDS ORDERED: PT OWN MED DRAWER 7, Y5N ONE ×3 (09:13→22:38)
[2018-11-12] MEDS: DOCUSATE SODIUM 100 MG CAPSULE (FP) PO SCH (09:29)
[2018-11-12] MEDS: POLYETHYLENE GLYCOL 3350 119 GM BTL PO SCH (09:29)
[2018-11-12] MEDS: FLUoxetine HCL 10 MG CAPSULE (FP) PO SCH (09:29)
[2018-11-12] MEDS: levETIRAcetam 500 MG TABLET (FP) PO SCH ×2 (09:29→22:39)
[2018-11-12] MEDS: DIVALPROEX NA *ER* EXTEND REL 250 MG TABLET.SA PO SCH ×2 (09:29→22:39)
[2018-11-12] MEDS: carBAMazepine 200 MG TABLET PO SCH ×2 (09:29→22:39)
[2018-11-12] MEDS: ASPIRIN COATED 81 MG TABLET.EC PO SCH (09:29)
--- NOTE | 2018-11-12 10:44 | PN ---
Teaching Attending Note Name of Resident: Walker Alonso ATTENDING PHYSICIAN STATEMENT I saw and evaluated the patient. I reviewed the resident's note and discussed the case with the resident. I agree with the resident's findings and plan as documented. SUBJECTIVE: No complaints. No headache/visual disturbance, limb numbness/ weakness. OBJECTIVE: Afebrile, Hemodynamically Stable. Mildly flattened affect. Last Vital Signs Temp Pulse Resp BP Pulse Ox 97.5 F L 73 18 100/56 L 98 11/12/18 06:00 11/12/18 06:00 11/12/18 06:00 11/12/18 06:00 11/11/18 21:00 Heart - S1, S2, RRR Lungs - clear to auscultation. Abdomen - Soft, non-tender. Bowel Sounds normal. Extremities - no edema, no calf tenderness. Neuro - AAO x 3. line crewman intact. Tone/Power normal all 4 extremities. L sided resting tremor LUE. Current Medications Generic Name Dose Route Start Last Admin Trade Name Aleksandrq PRN Reason Stop Dose Admin Aspirin 81 mg 11/10/18 19:30 11/12/18 09:29 Ecotrin - PO 81 mg DAILY [facility] Administration Atorvastatin Calcium 40 mg 11/10/18 22:00 11/11/18 21:24 Lipitor - PO 40 mg HS [facility] Administration Carbamazepine 200 mg 11/06/18 22:00 11/12/18 09:29 Tegretol - PO 200 mg BID [facility] Administration Divalproex Sodium 750 mg 11/06/18 22:00 11/12/18 09:29 Depakote *Er* - PO 750 mg BID [facility] Administration Docusate Sodium 100 mg 11/12/18 10:00 11/12/18 09:29 Colace - PO 100 mg DAILY [facility] Administration Fluoxetine HCl 10 mg 11/07/18 10:00 11/12/18 09:29 Prozac - PO 10 mg DAILY [facility] Administration Levetiracetam 500 mg 11/06/18 22:00 11/12/18 09:29 Keppra - PO 500 mg BID [facility] Administration Polyethylene Glycol 17 gm 11/12/18 10:00 11/12/18 09:29 Miralax (For Daily Use) - PO 17 gm DAILY [facility] Administration Home Medications Medication Instructions Recorded Carbamazepine [Tegretol -] 200 mg PO BID 07/26/19 Fluoxetine HCl 10 mg PO DAILY 11/06/18 Levetiracetam 500 mg PO BID 11/06/18 Olanzapine [ZyPREXA -] 10 mg PO BID 11/06/18 Divalproex *ER* [Depakote *ER* -] 750 mg PO BID #0 tablet.sa 11/10/18 Aspirin Coated [Ecotrin -] 81 mg PO DAILY #30 tablet.ec 11/11/18 Atorvastatin Ca [Lipitor] 40 mg PO HS #30 tablet 11/11/18 ASSESSMENT AND PLAN: 63 year old male with history of IV Drug Use, Seizure Disorder, s/p L Frontal/ Parietal craniotomy due to ICH sec to trauma, Depression with Psychosis, presented to the ER with seizure like activity, noted to have R facial droop and RUE weakness, which has since resolved. Head CT- L frontal and R FP craniotomies; B frontal > temporal encephalomalacia with atrophy Brain MRI- encephalomalacia most notable L > R frontal lobe anteriorly; periventricular small vessel dz; no acute ischemia Brain MRA- B M1 reduced flow Neck MRA- R ICA atherosclerosis with focal stenosis R ICA C2 segment. 1. Alex's Paralysis s/p breakthrough seizure - resolved. Depakote dose increased. Continue Carbamazepine, Keppra. Neurology consulted. 2. Focal stenosis C2 segment of R ICA on MRA Brain. MRI Brain/CT Head negative for acute intracranial findings. Neurosurgery consulted for opinion re: imaging findings. Neurologically Stable. Presenting neurological deficits do not coincide with location of possible stenotic lesion, so unlikley TIA. For more definitive scan, CTA Head/Neck required. However, delay in imaging due to poor IV access. Will re-attempt today. 3. Thrombocytopenia - Mild. No bruising/bleeding. for out-patient follow up. 4. Depression - continue Fluoxetine, Zyprexa. 5. Hx of IV drug use - drug-free for almost 10 years. 5. DVT Px - SCDs. Heparin held due to relative thrombocytopenia and Hx ICH.
--- NOTE | 2018-11-12 11:59 | PN ---
Progress Note (short form) - Note Progress Note: NEUROSURGERY Care and findings d/w Dr Walker yesterday RH male with h/o sz on carbamezipine, keppra, depakote, L frontal and parietal craniotomy for trauma, depression, and psychosis was sent to the ED s/p witnessed seizure. Fell when at [employer]. + tonic clonic movements. Reports hitting his head. Initially with R sided facial droop and RUE drift which improved spontaneously . Having sz every other day/more frequently. Some B LE numbness and balance issues No H/A, N/V, diplopia, fever, chill, recent infection. Doing ok today. Assisted pt with lunch. PE: AF, VSS HEENT- B scalp scars healed; Neck- supple; Cor- RR; Lungs- CTA B; Abd- benign; Ext- no sign of DVT; 1+ pulses CN- intact; Motor- 4+ R DF, otherwise 5/5, no drift; Sensation- decreased B distal LE vibratory sensation; DTR- hyporeflexic B, toes upgoing B Labs reviewed Head CT- L frontal and R FP craniotomies; B frontal > temporal encephalomalacia with atrophy Brain MRI- encephalomalacia most notable L > R frontal lobe anteriorly; periventricular small vessel dz; no acute ischemia Brain MRA- B A1 reduced flow Neck MRA- R CCA/ICA atherosclerotic dz with atherosclerosis and R ICA C2 segment stenosis B fronto-temporal posttraumatic encephalomalacia with sz No acute neurosurgical intervention indicated On ASA/plavix to reduce intracranial thromboembolic risks, though given sz and risks of falls full dose AC may cause more harm than good R sided symptoms in ED not c/w R CCA/ICA (C1 and C2 segment) disease (would cause L sided symptoms instead) and more likely post-ictal or transiently decreased L MCA flow Neurology f/u for sz control optimization Consider neuro-interventional for possible tx of R C1 and C2 segment ICA disease , if R CCA/ICA C1 and C2 segment marked stenosis are confirmed
--- NOTE | 2018-11-12 18:45 | PN ---
Physical Exam: SUBJECTIVE: 63 y/o M with h/o seizure d/o here for seizure and to r/o RIGHT ICA lesion, seen at bedside today. He is communicating well and his only complaint is constipation. Pt has no FAIRCHILD or vision changes. He denies weakness, numbness, tingling and lethargy. Denies NVFD. OBJECTIVE: Last Vital Signs Temp Pulse Resp BP Pulse Ox 97.5 F L 76 18 115/65 98 11/12/18 10:00 11/12/18 10:11/12/18 10:00 11/12/18 10:11/12/18 10:00 GENERAL: The patient is awake, alert, and fully oriented, in no acute distress. HEAD: Normal with well healed scars EYES: PERRL, extraocular movements intact, sclera anicteric, conjunctiva clear. No ptosis. ENT: Ears normal, nares patent, oropharynx clear without exudates, moist mucous membranes. NECK: Trachea midline, full range of motion, supple. LUNGS: Breath sounds equal, clear to auscultation bilaterally, no wheezes, no crackles, no accessory muscle use. HEART: Regular rate and rhythm, S1, S2 without murmur, rub or gallop. ABDOMEN: Soft, nontender, nondistended, normoactive bowel sounds, no guarding, no rebound, no hepatosplenomegaly, no masses. EXTREMITIES: 2+ pulses, warm, well-perfused, no edema. NEUROLOGICAL: Cranial nerves II through XII grossly intact. Normal speech, gait not observed. Strength 5/5. PSYCH: Normal mood, normal affect. SKIN: Warm, dry, normal turgor, no rashes or lesions noted Active Medications Aspirin (Ecotrin -) 81 mg PO DAILY [facility] Last Admin: 11/12/18 09:29 Dose: 81 mg Atorvastatin Calcium (Lipitor -) 40 mg PO HS [facility] Last Admin: 11/11/18 21:24 Dose: 40 mg Carbamazepine (Tegretol -) 200 mg PO BID [facility] Last Admin: 11/12/18 09:29 Dose: 200 mg Divalproex Sodium (Depakote *Er* -) 750 mg PO BID [facility] Last Admin: 11/12/18 09:29 Dose: 750 mg Docusate Sodium (Colace -) 100 mg PO DAILY [facility] Last Admin: 11/12/18 09:29 Dose: 100 mg Fluoxetine HCl (Prozac -) 10 mg PO DAILY [facility] Last Admin: 11/12/18 09:29 Dose: 10 mg Levetiracetam (Keppra -) 500 mg PO BID [facility] Last Admin: 11/12/18 09:29 Dose: 500 mg Polyethylene Glycol (Miralax (For Daily Use) -) 17 gm PO DAILY [facility] Last Admin: 11/12/18 09: Dose: 17 gm ASSESSMENT/PLAN: 63 y/o male h/o IVDU, seizure d/o, depression admitted for seizure with RIGHT facial droop and RUE weakness that has now resolved. # Alex's paralysis - Now resolved - Cont. current regimen # ?RIGHT ICA - NO focal findings on PE - Brain and neck CT performed today, delayed d/t poor access, f/u results. If significant, transfer to neuro interventional. If not d/c. # Seizure d/o - Cont. current regimen. # Depression - Cont. current regimen # F/E/N - No standing fluids - Anticipating DC and poor access - Normal diet # Prophylaxis - SCD # Dispo - Full code Visit type - Emergency Visit Emergency Visit: No - New Patient This patient is new to me today: No - Critical Care Critical Care patient: No - Discharge Referral Referred to [facility] No ATTENDING PHYSICIAN STATEMENT I saw and evaluated the patient. I reviewed the resident's note and discussed the case with the resident. I agree with the resident's findings and plan as documented. SUBJECTIVE: OBJECTIVE: ASSESSMENT AND PLAN:
[2018-11-12] MEDS: ATORVASTATIN CA 40 MG TABLET (FP) PO SCH (22:39)
[2018-11-13] MEDS ORDERED: PT OWN MED DRAWER 7, Y5N ONE ×2 (10:18→10:35)
[2018-11-13] MEDS: POLYETHYLENE GLYCOL 3350 119 GM BTL PO SCH (10:27)
[2018-11-13] MEDS: levETIRAcetam 500 MG TABLET (FP) PO SCH (10:28)
[2018-11-13] MEDS: DOCUSATE SODIUM 100 MG CAPSULE (FP) PO SCH (10:28)
[2018-11-13] MEDS: carBAMazepine 200 MG TABLET PO SCH (10:28)
[2018-11-13] MEDS: FLUoxetine HCL 10 MG CAPSULE (FP) PO SCH (10:29)
[2018-11-13] MEDS: DIVALPROEX NA *ER* EXTEND REL 250 MG TABLET.SA PO SCH (10:29)
[2018-11-13] MEDS: ASPIRIN COATED 81 MG TABLET.EC PO SCH (10:29)
[2018-11-13 11:36] VITALS: BP 124/84; PULSE 65; TEMP 98.1
--- NOTE | 2018-11-13 14:19 | PN ---
Teaching Attending Note Name of Resident: Walker Alonso ATTENDING PHYSICIAN STATEMENT I saw and evaluated the patient. I reviewed the resident's note and discussed the case with the resident. I agree with the resident's findings and plan as documented. SUBJECTIVE: Feeling much improved from admission. No complaints. No headache/ visual disturbance, limb numbness/weakness. OBJECTIVE: Afebrile, Hemodynamically Stable. Mildly flattened affect. Last Vital Signs Temp Pulse Resp BP Pulse Ox 98.1 F 65 18 124/84 98 11/13/18 10:00 11/13/18 10:00 11/13/18 10:11/13/18 10:11/13/18 09:00 Heart - S1, S2, RRR Lungs - clear to auscultation. Abdomen - Soft, non-tender. Bowel Sounds normal. Extremities - no edema, no calf tenderness. Neuro - AAO x 3. miller helper distillery intact. Tone/Power normal all 4 extremities. Nodding tremor of head. L sided resting tremor LUE. Discharge Medications Medication Instructions Recorded Carbamazepine [Tegretol -] 200 mg PO BID 11/06/18 Fluoxetine HCl 10 mg PO DAILY 11/06/18 Levetiracetam 500 mg PO BID 11/06/18 Olanzapine [ZyPREXA -] 10 mg PO BID 11/06/18 Divalproex *ER* [Depakote *ER* -] 750 mg PO BID #0 tablet. 11/10/18 ASSESSMENT AND PLAN: 63 year old male with history of IV Drug Use, Seizure Disorder, s/p L Frontal/ Parietal craniotomy due to ICH sec to trauma, Depression with Psychosis, presented to the ER with seizure like activity, noted to have R facial droop and RUE weakness, which has since resolved. Head CT- L frontal and R FP craniotomies; B frontal > temporal encephalomalacia with atrophy Brain MRI- encephalomalacia most notable L > R frontal lobe anteriorly; periventricular small vessel dz; no acute ischemia Brain MRA- B M1 reduced flow Neck MRA- R ICA atherosclerosis with focal stenosis R ICA C2 segment. 1. Alex's Paralysis s/p breakthrough seizure - resolved. Depakote dose increased. Continue Carbamazepine, Keppra. Neurology consulted - to follow as outpatient. 2. Focal stenosis C2 segment of R ICA on MRA Brain is an artefect. CTA Head/ Neck does not show this suspected lesion. No evidence of cerebrovascular disease. . MRI Brain/CT Head negative for acute intracranial findings. Neurologically Stable. to follow with Neurology as out-patient. 3. Thrombocytopenia - Mild. No bruising/bleeding. For out-patient follow up. 4. Depression - continue Fluoxetine, Zyprexa. 5. Hx of IV drug use - drug-free for almost 10 years. 6. Tremor - resting tremor of hands and nodding tremor of head, possible Parkinsonism. Neurology follow up on discharge. Medically optimized for discharge with Neuro out-patient follow up.
--- NOTE | 2018-11-14 16:45 | DS ---
Physical Exam: SUBJECTIVE: 63 y/o M BIBEMS for witnessed seizure, AMS, and RIGHT sided weakness admitted for seizure r/o CVA, seen at bedside today. Pt offers no complaints today. RIGHT sided weakness has resolved. He denies FAIRCHILD, vision change , numbness, tingling, and NVFD. OBJECTIVE: Last Vital Signs Temp Pulse Resp BP Pulse Ox 98.1 F 65 18 124/84 98 11/13/18 10:00 11/13/18 10:00 11/13/18 10:00 11/13/18 10:00 11/13/18 09:00 PHYSICAL EXAM GENERAL: The patient is awake, alert, and fully oriented, in no acute distress. HEAD: Normocephalic with well healed scars EYES: BEAR, extraocular movements intact, sclera anicteric, conjunctiva clear. ENT: Ears normal, nares patent, oropharynx clear without exudates, moist mucous membranes. NECK: Trachea midline, full range of motion, supple. LUNGS: Breath sounds equal, clear to auscultation bilaterally, no wheezes, no crackles, no accessory muscle use. HEART: Regular rate and rhythm, S1, S2 without murmur, rub or gallop. ABDOMEN: Soft, nontender, nondistended, normoactive bowel sounds, no guarding, no rebound, no hepatosplenomegaly, no masses. EXTREMITIES: POSTIVE LEFT hand tremor. 2+ pulses, warm, well-perfused, no edema. NEUROLOGICAL: Cranial nerves II through XII grossly intact. Normal speech, gait not observed. PSYCH: Normal mood, normal affect. SKIN: Warm, dry, normal turgor, no rashes or lesions noted. CBC, BMP 11/11/18 07:51 11/11/18 07:51 HOSPITAL COURSE: Date of Admission:11/06/18 63 y/o male h/o IVDU, seizure d/o, depression admitted for seizure with RIGHT facial droop and RUE weakness now resolved, concerning for CVA in the setting of positive CT finding of possible RIGHT ICA occlusion. Divalproex (Depakote) ER increased to 750mg twice a day. During stay pt's platelets were marginally low, consistent with anticonvulsant medication but pt never experienced related bleeding or bruising. A delay in repeat imaging to confirm or r/o ICA occlusion occurred during stay 2/ poor IV access. 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 IMAGING 11/12/18 NECK CTA No extracranial carotid artery stenosis is identified. There is no definite extracranial vertebral artery stenosis allowing for partially obscuring artifact at the level of the vessel origins. The intracranial CT study demonstrates no evidence of large vessel stenosis or occlusion. Date of Discharge: 11/14/18 11/09/18 BRAIN MRA Patent major arterial vessels at the [place] NECK MRA Atherosclerotic changes are observed in the right common artery with several stenotic lesions. The degree of stenosis ranges from 50% to 75- 80%. There is suggestion of the ulcerated plaque in the proximal aspect of the right common carotid artery. Patent bilateral vertebral arteries forming patent basilar artery. Aortic arch, origin of the vertebral arteries, common carotid arteries not included on the submitted images. 11/07/18 BRAIN MRI No acute infarct is identified. Extensive chronic changes are noted.Status post left frontal temporal and right parietal craniotomies. CAROTID DOPPLER No Doppler evidence of a high-grade carotid artery stenosis is identified. ABDOMEN US No splenomegaly is identified. Probable diffuse hepatic steatosis. 11/06/[address] evidence of acute intracranial pathology. Date of Discharge: 11/14/18 Minutes to complete discharge: 40 Discharge Summary Reason For Visit: POST-ICTAL HEMIPLEGIA,SEIZURE Condition: Stable - Instructions Diet, Activity, Other Instructions: Your visit You were admitted to the hospital because you had an episode of seizure. It was then followed by right sided weakness. This was likely caused by the seizure, but several labs and imaging were done to rule out a stroke. CAT scan and MRI of your brain show NO vessel blockage. It is important that you take your medications regularly to avoid any seizure episodes. Please follow up with your primary care provider, neurologist, and psychiatrist, as scheduled. Medications Please note the following changes to your medications. 1. Divalproex (Depakote) ER increased to 750mg twice a day. Continue your other medications as prescribed: 1. Keppra 500mg twice a day. 2. Carbamazepine 200mg twice a day. 3. Fluoxetine 10mg daily. Follow up Please follow up with the neurologist (Dr. Matos) within 1 week. Please follow up with your primary care doctor within 1 week. Additional info Call 911 or go to the ED if with any worsening fever, chills, headache, dizziness, chest pain, shortness of breath, seizures, or any new concerns noted. Referrals: Alfredo Matos MD [Staff Physician] - Disposition: CARE HOME FACILITY - Home Medications Comprehensive Discharge Medication List: Ambulatory Orders Carbamazepine [Tegretol -] 200 mg PO BID 11/06/18 Fluoxetine HCl 10 mg PO DAILY 11/06/18 Levetiracetam 500 mg PO BID 11/06/18 Olanzapine [ZyPREXA -] 10 mg PO BID 11/06/18 Divalproex *ER* [Depakote *ER* -] 750 mg PO BID #0 tablet.sa 11/10/18 This patient is new to me today: No Emergency Visit: No Critical Care patient: No - Discharge Referral Referred to [facility] Med P.C.: No ATTENDING PHYSICIAN STATEMENT I saw and evaluated the patient. I reviewed the resident's note and discussed the case with the resident. I agree with the resident's findings and plan as documented. SUBJECTIVE: OBJECTIVE: ASSESSMENT AND PLAN:
== END 2018-11-13 11:40 | DRG 101 ==
LOC: JER 16:47 → JERBED 20:34 → OBSVTOIN 20:34 → J4S 22:42
PROVIDERS: ADMIT Internal Medicine
DX: G40.909 Epilepsy, unspecified, not intractable, without status epilepticus (principal); F28 Other psychotic disorder not due to a substance or known physiological condition; F32.9 Major depressive disorder, single episode, unspecified; K59.09 Other constipation; G83.84 Todd's paralysis (postepileptic); R41.82 Altered mental status, unspecified; R29.810 Facial weakness; I65.21 Occlusion and stenosis of right carotid artery; Z87.891 Personal history of nicotine dependence
CPT/HCPCS: 36415; 70450-TC; 70496-TC; 70498-TC; 70544-TC; 70547-TC; 70551-TC; 76700-TC; 80048; 80053; 80156; 80164; 80177; 81003; 82465; 82550; 82962; 83718; 83721; 83735; 84100; 84478; 84484; 85025; 85610; 86850; 86900; 86901; 93005; 93010; 93306-TC; 93880-TC; 97116-GP; 97161-GP; 99284-25; J7030

== ENCOUNTER 2018-11-13 19:34 | Emergency (ER) | payer OTHER ==
[2018-11-13 19:53] VITALS: BP 90/69; PULSE 72; TEMP 98; BMI 22.9
--- NOTE | 2018-11-13 20:05 | PDOC ---
History of Present Illness - General Chief Complaint: Seizure Stated Complaint: STATUS POST SEIZURE Time Seen by Provider: 11/13/18 20:00 - History of Present Illness Initial Comments: 11/13/18 21:10 HPI: 63 y/o M with hx of IVDU, seizures, ICH 2/2 trauma, depression, psychosis who was recently DCd to [facility] from [facility] service earlier this afternoon around 2pm presenting to the ED from [facility] for possible seizure around 7pm. residential staff report that he was found in the TV room by another coresident and was reported to be drooling and was not responding appropriately. When staff was notified, they stated he appeared confused, similar to other times he hsa had seizures and called EMS. In the ED, patient with BP initially 90/69, but repeat was 126/77 without intervention. He repeatedly states he just wants his meds and to leave the hospital. Denies any other complaints. He received his meds and a meal earlier. Patient denies FAIRCHILD, vision change, palpitations, N/V, F,C, CP, SOB, urinary complaints, hematuria, BPR, abdominal pain, diarrhea, constipation, lightheadedness, weakness, sensory changes. PMHx: as noted above ROS: as noted SHx: Denies Etoh, IVDA, tobacco use Allergies: NKDA Past History - Past Medical History Allergies/Adverse Reactions: Allergies Allergy/AdvReac Type Severity Reaction Status Date / Time No Known Allergies Allergy Verified 11/06/18 18:13 Home Medications: Ambulatory Orders Carbamazepine [Tegretol -] 200 mg PO BID 11/06/18 Fluoxetine HCl 10 mg PO DAILY 11/06/18 Levetiracetam 500 mg PO BID 11/06/18 Olanzapine [ZyPREXA -] 10 mg PO BID 11/06/18 Divalproex *ER* [Depakote *ER* -] 750 mg PO BID #0 tablet.sa 11/10/18 Anemia: No Asthma: No Cancer: No Cardiac Disorders: No CVA: Yes COPD: No CHF: No GI Disorders: Yes (chronic constipation) Psychiatric Problems: Yes (psychosis, depression) Seizures: Yes - Immunization History Immunization Up to Date: No - Suicide/Smoking/Psychosocial Hx Smoking History: Former smoker Have you smoked in the past 12 months: No Number of Cigarettes Smoked Daily: 2,017 If you are a former smoker, when did you quit?: 3 years ago Information on smoking cessation initiated: No Hx Alcohol Use: No Drug/Substance Use Hx: Yes (stopped 3 years ago) Substance Use Type: Heroin Hx Substance Use Treatment: Yes Review of Systems - Review of Systems Comments:: 11/13/18 21:27 GENERAL/CONSTITUTIONAL: No fever or chills. No weakness. HEAD, EYES, EARS, NOSE AND THROAT: No change in vision. No ear pain or discharge. No sore throat. CARDIOVASCULAR: No chest pain or shortness of breath RESPIRATORY: No cough, wheezing, or hemoptysis. GASTROINTESTINAL: No nausea, vomiting, diarrhea or constipation. GENITOURINARY: No dysuria, frequency, or change in urination. MUSCULOSKELETAL: No joint or muscle swelling or pain. No neck or back pain. SKIN: No rash NEUROLOGIC: No headache, vertigo, loss of consciousness, or change in strength/ sensation. ENDOCRINE: No increased thirst. No abnormal weight change HEMATOLOGIC/LYMPHATIC: No anemia, easy bleeding, or history of blood clots. ALLERGIC/IMMUNOLOGIC: No hives or skin allergy. *Physical Exam - Vital Signs Last Vital Signs Temp Pulse Resp BP Pulse Ox 98.0 F 72 17 90/69 98 11/13/18 19:48 11/13/18 19:48 11/13/18 19:48 11/13/18 19:48 11/13/18 19:48 - Physical Exam Comments: 11/13/18 21:28 GENERAL: A&Ox2 to place and person HEAD: No signs of trauma, normocephalic, atraumatic EYES: EOMI, sclera anicteric, conjunctiva clear ENT: Auricles normal inspection, hearing grossly normal, nares patent, oropharynx clear without exudates. Moist mucosa NECK: Normal ROM, supple, no lymphadenopathy, JVD, or masses LUNGS: No distress, speaks full sentences, clear to auscultation bilaterally HEART: Regular rate and rhythm, normal S1 and S2, no murmurs, rubs or gallops, peripheral pulses normal and equal bilaterally. ABDOMEN: Soft, nontender, normoactive bowel sounds. No guarding, no rebound. No masses EXTREMITIES : Normal inspection, Normal range of motion, no edema. No clubbing or cyanosis. NEUROLOGICAL: Cranial nerves II through XII grossly intact. Normal speech, normal gait, no focal sensorimotor deficits SKIN: Warm, Dry, normal turgor, no rashes or lesions noted Medical Decision Making - Medical Decision Making 11/13/18 21:28 63 y/o M with hx of IVDU, seizures, ICH 2/2 trauma s/p L frontal and parietal craniotomy, depression, psychosis who was recently DCd to [facility] from [facility] service earlier this afternoon around 2pm presenting to the ED from [facility] for possible seizure around 7pm. Vitals initally 90/69 but repeat with SBP in 120s without intervention. Physical exam remarkable only for A&Ox2 -CBC, CMP -500cc bolus -will administer meds -CT head noncon 11/13/18 21:30 patient noted to have rhythmic motions and stopped speaking which self resolved after less than a minute 11/13/18 21:[address] gambino paged 11/13/18 22:05 Dr Villa consulted with neurology and recs were made for lab workup and increase in anti-epileptic meds patient A&Ox3 and refusing all care and workup. Would like to go back home. Will give dinner bag and DC to [facility] 11/13/18 22:18 ambulance called for patient transport *DC/Admit/Observation/Transfer Diagnosis at time of Disposition: Seizure - Discharge Dispostion Disposition: HOME Condition at time of disposition: Improved Decision to Admit order: No - Referrals - Patient Instructions Printed Discharge Instructions: DI for Seizure Disorder -- Adult - Post Discharge Activity
[2018-11-13] MEDS ORDERED: SODIUM CHLORIDE 0.9% 500 ML INFUS.BAG IV ONE (20:52)
[2018-11-13] MEDS ORDERED: LORazepam 2 MG/ML SDV VIAL ONE (21:05)
--- NOTE | 2018-11-14 16:05 | DS ---
Physical Exam: SUBJECTIVE: 63 y/o M BIBEMS from [facility] s/p witnessed seizure, AMS, and RIGHT sided weakness admitted for seizure d/o r/o CVA. Pt was examined at bedside today and offers no complaints. He does not feel weak or have a lack of energy. He denies FAIRCHILD, altered vision, numbness and tingling. He denies CP, SOB, and NFVD. OBJECTIVE: Vital Signs Period Temp Pulse Resp BP Sys/Beach Pulse Ox Last 24 Hr 98.0 F 72 17 90/69 98 PHYSICAL EXAM GENERAL: The patient is awake, alert, and fully oriented, in no acute distress. HEAD: Normalcephalic with well brii scars. EYES: PERRLA, extraocular movements intact, sclera anicteric, conjunctiva clear. ENT: Ears normal, nares patent, oropharynx clear without exudates, moist mucous membranes. NECK: Trachea midline, full range of motion, supple. LUNGS: Breath sounds equal, clear to auscultation bilaterally, no wheezes, no crackles, no accessory muscle use. HEART: Regular rate and rhythm, S1, S2 without murmur, rub or gallop. ABDOMEN: Soft, nontender, nondistended, normoactive bowel sounds, no guarding, no rebound, no hepatosplenomegaly, no masses. EXTREMITIES: 2+ pulses, warm, well-perfused, no edema. NEUROLOGICAL: + essenial tremor in left hand. Cranial nerves II through XII grossly intact. Normal speech, gait not observed. PSYCH: Normal mood, normal affect. SKIN: Warm, dry, normal turgor, no rashes or lesions noted. LABS HOSPITAL COURSE: Date of Admission:11/13/18 Date of Discharge: 11/14/18 Minutes to complete discharge: 40 Discharge Summary Reason For Visit: STATUS POST SEIZURE Condition: Improved - Instructions Disposition: RETIREMENT FACILITY - Home Medications Comprehensive Discharge Medication List: Ambulatory Orders Carbamazepine [Tegretol -] 200 mg PO BID 11/06/18 Fluoxetine HCl 10 mg PO DAILY 11/06/18 Levetiracetam 500 mg PO BID 11/06/18 Olanzapine [ZyPREXA -] 10 mg PO BID 11/06/18 Divalproex *ER* [Depakote *ER* -] 750 mg PO BID #0 tablet.sa 11/10/18 This patient is new to me today: No Emergency Visit: No Critical Care patient: No - Discharge Referral Referred to [facility] Med P.C.: No ATTENDING PHYSICIAN STATEMENT I saw and evaluated the patient. I reviewed the resident's note and discussed the case with the resident. I agree with the resident's findings and plan as documented. SUBJECTIVE: OBJECTIVE: ASSESSMENT AND PLAN:
== END 2018-11-13 23:57 ==
LOC: JER 19:34
DX: G40.909 Epilepsy, unspecified, not intractable, without status epilepticus (principal); F32.9 Major depressive disorder, single episode, unspecified; F28 Other psychotic disorder not due to a substance or known physiological condition; Z86.73 Personal history of transient ischemic attack (TIA), and cerebral infarction without residual deficits
CPT/HCPCS: 99281-25

== ENCOUNTER 2019-05-04 14:51 | Inpatient (IN) | payer OTHER ==
[2019-05-04 17:50] VITALS: BMI 26.6
--- NOTE | 2019-05-04 19:11 | HP ---
Admitting History and Physical - Primary Care Physician PCP: Adama Avila - Admission History of Present Illness: 64 year sold man with PMHX CAd MR [place] Anxiety Bipolar seziure disorder Now admitted VEEG admission History Source: Patient Limitations to Obtaining History: Clinical Condition - Smoking History Smoking history: Former smoker Have you smoked in the past 12 months: No Aproximately how many cigarettes per day: 2,017 If you are a former smoker, when did you quit?: 3 years ago - Alcohol/Substance Use Hx Alcohol Use: No Home Medications - Allergies Allergies/Adverse Reactions: Allergies Allergy/AdvReac Type Severity Reaction Status Date / Time No Known Allergies Allergy Verified 11/06/18 18:13 - Home Medications Home Medications: Ambulatory Orders Carbamazepine [Tegretol -] 200 mg PO BID 11/06/18 Fluoxetine HCl 10 mg PO DAILY 11/06/18 Levetiracetam 500 mg PO BID 11/06/18 Olanzapine [ZyPREXA -] 10 mg PO BID 11/06/18 Divalproex *ER* [Depakote *ER* -] 750 mg PO BID #0 tablet.sa 11/10/18 Family Medical History Family History: Unremarkable Review of Systems - Review of Systems Constitutional: reports: No Symptoms Eyes: reports: No Symptoms Physical Examination Vital Signs: Vital Signs Temperature 98.0 F 05/04/19 18:00 Pulse Rate 67 05/04/19 18:00 Respiratory Rate 05/04/19 18:00 Blood Pressure 133/83 05/04/19 18:00 O2 Sat by Pulse Oximetry (%) 95 05/04/19 17:19 Constitutional: Yes: Well Nourished Eyes: Yes: WNL HENT: Yes: WNL Neurological: Yes: Alert, Oriented, Babinski negative ...Motor Strength: WNL Imaging - Results Cat Scan: Image Reviewed Problem List - Problems (1) Seizure Code(s): R56.9 - UNSPECIFIED CONVULSIONS Assessment/Plan VEEG Blood work
[2019-05-04] MEDS: carBAMazepine 200 MG/10 ML UNIT-DOSE CUP PO SCH (21:42)
[2019-05-04] MEDS: DIVALPROEX SODIUM 500 MG TABLET E.C. PO SCH (21:42)
[2019-05-04] MEDS: levETIRAcetam 250 MG TABLET PO SCH (21:42)
[2019-05-05] MEDS ORDERED: PT OWN MED DRAWER 7, Y5N ONE (09:10)
[2019-05-05] MEDS: levETIRAcetam 250 MG TABLET PO SCH ×2 (09:23→21:50)
[2019-05-05] MEDS: DIVALPROEX SODIUM 500 MG TABLET E.C. PO SCH ×2 (09:23→21:50)
--- NOTE | 2019-05-05 09:23 | PN ---
Progress Note, Physician History of Present Illness: lert awake oriented 3 normal attention span Follow commands normally No seizure activity comfortable eating breakfast Video EEG monitoring in progress - Current Medication List Current Medications: Active Medications Carbamazepine (Tegretol Oral Suspension -) 200 mg PO BID [facility] Last Admin: 05/04/19 21:42 Dose: 200 mg Divalproex Sodium (Depakote -) 500 mg PO BID [facility] Last Admin: 05/04/19 21:42 Dose: 500 mg Levetiracetam (Keppra -) 750 mg PO BID [facility] Last Admin: 05/04/19 21:42 Dose: 750 mg - Objective Vital Signs: Vital Signs Temperature 98.2 F 05/05/19 08:50 Pulse Rate 69 05/05/19 08:50 Respiratory Rate 18 05/05/19 08:50 Blood Pressure 116/71 05/05/19 08:50 O2 Sat by Pulse Oximetry (%) 98 05/04/19 21:00 Constitutional: Yes: Well Nourished Eyes: Yes: WNL Neurological: Yes: Alert, Oriented, Babinski negative ...Motor Strength: WNL Problem List - Problems (1) Seizure Assessment/Plan: 1. Seizure precautions. 2. Blood work today. 3. Continue video EEG monitoring. 4. Ativan when necessary seizure Code(s): R56.9 - UNSPECIFIED CONVULSIONS
[2019-05-05] MEDS: carBAMazepine 200 MG/10 ML UNIT-DOSE CUP PO SCH ×2 (09:24→21:51)
--- NOTE | 2019-05-05 10:44 | EKG ---
Test Reason : Blood Pressure : / mmHG Vent. Rate : 069 BPM Atrial Rate : 069 BPM P-R Int : 178 ms QRS Dur : 104 ms QT Int : 424 ms P-R-T Axes : 063 069 062 degrees QTc Int : 454 ms POOR DATA QUALITY, INTERPRETATION MAY BE ADVERSELY AFFECTED NORMAL SINUS RHYTHM NORMAL ECG WHEN COMPARED WITH ECG OF 06-NOV-2018 17:13, NO SIGNIFICANT CHANGE WAS FOUND Confirmed by KRISTINA CAMPUZANO, BARB ([id number]) on 05/05/2019 10:44:29 AM Referred By: Confirmed By:BARB ACEVEDO MD
[2019-05-06] MEDS ORDERED: LORazepam 2 MG/ML SDV VIAL IM ONE (03:51)
[2019-05-06] MEDS ORDERED: LORazepam 2 MG/ML SDV VIAL ONE (03:54)
[2019-05-06] MEDS ORDERED: LORazepam 2 MG/ML SDV VIAL IM PRN (05:19)
[2019-05-06] MEDS: DIVALPROEX SODIUM 500 MG TABLET E.C. PO SCH ×2 (10:34→22:36)
[2019-05-06] MEDS: levETIRAcetam 250 MG TABLET PO SCH ×2 (10:34→22:35)
[2019-05-06] MEDS ORDERED: PT OWN MED DRAWER 7, Y5N ONE ×2 (10:37→22:35)
[2019-05-06] MEDS: carBAMazepine 100 MG/5 ML UNIT-DOSE CUP PO SCH ×2 (10:38→22:36)
--- NOTE | 2019-05-06 13:19 | PN ---
Progress Note, Physician History of Present Illness: events noted chart reviewed Patient unfortunately had a seizure activity last night at 2:30 in the morning Patient seizure stopped by itself. We give the patient additional 500 mg of Depakote. - Current Medication List Current Medications: Active Medications Carbamazepine (Carbamazepine) 200 mg PO BID [facility] Last Admin: 05/06/19 10:38 Dose: 200 mg Levetiracetam (Keppra -) 750 mg PO BID [facility] Last Admin: 05/06/19 10:34 Dose: 750 mg Lorazepam (Ativan Injection -) 1 mg IM Q2H PRN PRN Reason: SEIZURE - Objective Vital Signs: Vital Signs Temperature 98.8 F 05/06/19 09:09 Pulse Rate 73 05/06/19 09:09 Respiratory Rate 18 05/06/19 09:09 Blood Pressure 137/85 05/06/19 09:09 O2 Sat by Pulse Oximetry (%) 95 05/05/19 21:00 Neurological: Yes: Alert, Oriented, Cran Nerves II-XII Intact ...Motor Strength: WNL Problem List - Problems (1) Seizure Assessment/Plan: 1. Seizure precautions. 2. Increase Depakote to 7 mg twice a day. 3. Follow up the Depakote level. Continue the video EEG monitoring. Code(s): R56.9 - UNSPECIFIED CONVULSIONS
--- NOTE | 2019-05-07 08:54 | PN ---
Progress Note, Physician History of Present Illness: events noted Chart reviewed Alert awkae Still with tremors No seziure - Current Medication List Current Medications: Active Medications Carbamazepine (Carbamazepine) [address] [facility] Last Admin: 05/06/19 22:36 Dose: 200 mg Divalproex Sodium (Depakote -) 1,[address] [facility] Last Admin: 05/06/19 22:36 Dose: 1,000 mg Levetiracetam (Keppra -) [address] [facility] Last Admin: 05/06/19 22:35 Dose: 750 mg Lorazepam (Ativan Injection -) 1 mg IM Q2H PRN PRN Reason: SEIZURE - Objective Vital Signs: Vital Signs Temperature 97.4 F L 05/07/19 05:54 Pulse Rate 64 05/07/19 05:54 Respiratory Rate 18 05/07/19 05:54 Blood Pressure 134/88 05/07/19 05:54 O2 Sat by Pulse Oximetry (%) 94 L 05/06/19 21:00 Constitutional: Yes: Well Nourished Eyes: Yes: WNL Neurological: Yes: Alert, Oriented, Babinski negative ...Motor Strength: WNL Problem List - Problems (1) Seizure Assessment/Plan: VPA 1000 bid Sinement upon dc Tegretol same Sz precaution Follow up in two weeks Code(s): R56.9 - UNSPECIFIED CONVULSIONS
[2019-05-07] MEDS ORDERED: PT OWN MED DRAWER 7, Y5N ONE (09:03)
[2019-05-07 09:32] VITALS: BP 132/78; PULSE 62; TEMP 98
[2019-05-07] MEDS: levETIRAcetam 250 MG TABLET PO SCH (09:35)
[2019-05-07] MEDS: carBAMazepine 100 MG/5 ML UNIT-DOSE CUP PO SCH (09:35)
[2019-05-07] MEDS: DIVALPROEX SODIUM 500 MG TABLET E.C. PO SCH (09:39)
== END 2019-05-07 12:49 | disposition home or self-care (01) | DRG 101 ==
LOC: J4S 16:53
PROVIDERS: ADMIT Psychiatry & Neurology Neurology; ATTEND Psychiatry & Neurology Neurology
PROC: 4A10X4Z Monitoring of Central Nervous Electrical Activity, External Approach (ICD-10-PCS; principal; 2019-05-06)
DX: G40.909 Epilepsy, unspecified, not intractable, without status epilepticus (principal); I25.10 Atherosclerotic heart disease of native coronary artery without angina pectoris; F31.9 Bipolar disorder, unspecified; F41.9 Anxiety disorder, unspecified; G20 Parkinson's disease
CPT/HCPCS: 80164; 93005; 93010; 95951

== ENCOUNTER 2020-03-24 05:46 | Emergency (ER) | payer OTHER ==
[2020-03-24 06:11] VITALS: BMI 23.7
[2020-03-24 08:41] LABS: HEMATOCRIT 45.1 % (35.4-49); MCH 29.9 pg (25.7-33.7); MCHC 33.3 g/dl (32.0-35.9); MEAN CELL VOLUME 89.9 fl (80-96); MEAN PLT VOLUME 8.3 fl (7.5-11.1); PLATELET COUNT 178 K/MM3 (134-434); RBC 5.02 M/mm3 (4.00-5.60); WHITE BLOOD COUNT 7.2 K/mm3 (4.0-10.0)
[2020-03-24 08:57] LABS: ALBUMIN 3.6 g/dl (3.4-5.0); BLOOD UREA NITROGEN 12.8 mg/dL (7-18); CALCIUM 9.3 mg/dL (8.5-10.1)
[2020-03-24 09:02] LABS: BILIRUBIN,TOTAL 0.4 mg/dL (0.2-1); TOT PROT 8.3 g/dl (6.4-8.2)
[2020-03-24 09:44] LABS: EPI CELLS 21 /uL (0-25.1); HYALINE CASTS 2 /uL (0-3.1); PH,URINE 8.5 (5.0-8.0); URINE APPEARANCE CLEAR; URINE BACTERIA 14 /uL (0-1359); URINE BILIRUBIN NEGATIVE (NEGATIVE); URINE COLOR YELLOW; URINE GLUCOSE (UA) NEGATIVE (NEGATIVE); URINE KETONE TRACE (NEGATIVE); URINE LEUK ESTERASE 1+ (NEGATIVE); URINE NITRITE NEGATIVE (NEGATIVE); URINE PROTEIN NEGATIVE (NEGATIVE); URINE RBC 8 /uL (0-23.9); URINE WBC 72 /uL (0-25.8)
[2020-03-24 09:47] VITALS: BP 95/68; PULSE 78; TEMP 98.8
[2020-03-24] MEDS ORDERED: DIVALPROEX SODIUM 500 MG TABLET E.C. PO ONE (10:44)
[2020-03-24] MEDS ORDERED: DIVALPROEX SODIUM 500 MG TABLET E.C. ONE (10:48)
== END 2020-03-24 12:02 ==
LOC: JER 05:46
DX: G40.89 Other seizures (principal)
CPT/HCPCS: 36415; 70450-TC; 71045-TC-FY; 72125-TC; 80053; 80164; 81003; 82962; 85027; 93005; 93010; 99285-25; C9803; U0003

== ENCOUNTER 2020-03-25 20:27 | Emergency (ER) | payer OTHER ==
[2020-03-25 20:50] VITALS: TEMP 97.7; BMI 24.1
[2020-03-26 00:01] VITALS: BP 114/83; PULSE 83
== END 2020-03-26 00:01 | disposition home or self-care (01) ==
LOC: JER 20:27
DX: S82.832A Other fracture of upper and lower end of left fibula, initial encounter for closed fracture (principal)
CPT/HCPCS: 73590-TC-LT-FY; 73610-TC-LT-FY; 73630-TC-LT; 93005; 93010; 99284-25

== ENCOUNTER 2020-05-18 04:35 | Emergency (ER) | payer OTHER ==
[2020-05-18 04:59] VITALS: BMI 23.7
[2020-05-18 05:19] LABS: BASO % 0.6 % (0-2.0); EOS % 0.1 % (0-4.5); HEMATOCRIT 45.5 % (35.4-49); HEMOGLOBIN 15.8 GM/dL (11.7-16.9); LYMPH % 30.6 % (8-40); MCH 31.9 pg (25.7-33.7); MCHC 34.8 g/dl (32.0-35.9); MEAN CELL VOLUME 91.6 fl (80-96); MEAN PLT VOLUME 8.7 fl (7.5-11.1); MONO % 12.8 % (3.8-10.2); NEUT % 55.9 % (42.8-82.8); PLATELET COUNT 163 K/MM3 (134-434); RBC 4.97 M/mm3 (4.00-5.60); RDW 13.7 % (11.9-15.9); WHITE BLOOD COUNT 6.4 K/mm3 (4.0-10.0)
[2020-05-18 05:38] LABS: POTASSIUM 4.4 mmol/L (3.5-5.1)
[2020-05-18 05:40] LABS: CALCIUM 9.6 mg/dL (8.5-10.1)
[2020-05-18 05:41] LABS: ALBUMIN 3.7 g/dl (3.4-5.0)
[2020-05-18 05:46] LABS: BILIRUBIN,TOTAL 0.5 mg/dL (0.2-1); TOT PROT 8.6 g/dl (6.4-8.2)
[2020-05-18 05:51] LABS: BLOOD UREA NITROGEN 13.9 mg/dL (7-18)
[2020-05-18 08:33] LABS: EPI CELLS 2 /uL (0-25.1); HYALINE CASTS 0 /uL (0-3.1); PH,URINE 8.5 (5.0-8.0); URINE APPEARANCE CLEAR; URINE BACTERIA 112 /uL (0-1359); URINE BILIRUBIN NEGATIVE (NEGATIVE); URINE COLOR YELLOW; URINE GLUCOSE (UA) NEGATIVE (NEGATIVE); URINE KETONE 1+ (NEGATIVE); URINE LEUK ESTERASE 1+ (NEGATIVE); URINE NITRITE NEGATIVE (NEGATIVE); URINE PROTEIN NEGATIVE (NEGATIVE); URINE RBC 13 /uL (0-23.9); URINE WBC 140 /uL (0-25.8)
[2020-05-18 13:21] VITALS: BP 133/77; PULSE 78; TEMP 98
== END 2020-05-18 13:21 ==
LOC: JER 04:35
DX: G40.89 Other seizures (principal); N30.00 Acute cystitis without hematuria
CPT/HCPCS: 36415; 70450-TC; 71045-TC-FY; 80053; 80164; 81003; 85025; 87086; 87186; 93005; 93010; 99285-25

== ENCOUNTER 2021-08-10 00:08 | Emergency (ER) | payer OTHER ==
[2021-08-10 00:29] VITALS: BMI 23.5
[2021-08-10] MEDS ORDERED: SODIUM CHLORIDE 0.9% 500 ML INFUS.BAG IV ONE (01:25)
[2021-08-10] MEDS ORDERED: DIPHTH,PERTUSS(ACELL),TET 0.5 ML DISP.SYRIN IM ONE ×2 (01:25→02:09)
[2021-08-10] MEDS ORDERED: ACETAMINOPHEN 1000 MG/100 ML BAG IVPB ONE (01:25)
[2021-08-10] MEDS ORDERED: ACETAMINOPHEN INJECTION 100 ML IVPB ONE (02:09)
[2021-08-10 02:16] LABS: BASO % 0.5 % (0-2.0); EOS % 0.2 % (0-4.5); HEMATOCRIT 48.3 % (35.4-49); HEMOGLOBIN 16.6 GM/dL (11.7-16.9); LYMPH % 44.4 % (8-40); MCH 31.5 pg (25.7-33.7); MCHC 34.4 g/dl (32.0-35.9); MEAN CELL VOLUME 91.4 fl (80-96); MEAN PLT VOLUME 8.8 fl (7.5-11.1); MONO % 7.8 % (3.8-10.2); NEUT % 47.1 % (42.8-82.8); PLATELET COUNT 134 10^3/uL (134-434); RBC 5.28 M/mm3 (4.00-5.60); RDW 13.4 % (11.9-15.9); WHITE BLOOD COUNT 4.3 K/mm3 (4.0-10.0)
[2021-08-10 02:32] LABS: ALBUMIN 3.9 g/dl (3.4-5.0); CALCIUM 9.5 mg/dL (8.5-10.1)
[2021-08-10 02:36] LABS: CREATININE 0.9 mg/dL (0.55-1.3)
[2021-08-10 02:37] LABS: BILIRUBIN,TOTAL 0.4 mg/dL (0.2-1); TOT PROT 9.6 g/dl (6.4-8.2)
[2021-08-10] MEDS ORDERED: levETIRAcetam 500 MG/5 ML INJECTION VIAL IVPB ONE ×2 (05:11)
[2021-08-10] MEDS ORDERED: LIDOCAINE 5% TOPICAL PATCH TP ONE (05:14)
[2021-08-10 05:36] LABS: CALCIUM 8.8 mg/dL (8.5-10.1)
[2021-08-10 05:37] LABS: ALBUMIN 3.2 g/dl (3.4-5.0); BLOOD UREA NITROGEN 18.3 mg/dL (7-18)
[2021-08-10 05:40] LABS: CREATININE 0.8 mg/dL (0.55-1.3)
[2021-08-10 05:41] LABS: BILIRUBIN,TOTAL 0.3 mg/dL (0.2-1); TOT PROT 7.6 g/dl (6.4-8.2)
[2021-08-10] MEDS ORDERED: LIDOCAINE 5% TOPICAL PATCH ONE (06:15)
[2021-08-10 07:16] VITALS: TEMP 98.3
[2021-08-10 09:59] VITALS: PULSE 75
[2021-08-10 10:03] VITALS: BP 127/88
[2021-08-10] MEDS ORDERED: LIDOCAINE PATCH REMOVAL MC SCH (22:00)
== END 2021-08-10 09:45 ==
LOC: JER 00:08
PROC: 3E0234Z Introduction of Serum, Toxoid and Vaccine into Muscle, Percutaneous Approach (ICD-10-PCS; principal; 2021-08-10)
PROC: 3E033GC Introduction of Other Therapeutic Substance into Peripheral Vein, Percutaneous Approach (ICD-10-PCS; principal; 2021-08-10)
DX: G40.89 Other seizures (principal)
CPT/HCPCS: 36415; 70450-TC; 71045-TC-FY; 72125-TC; 72128-TC; 72131-TC; 72170-TC-FY; 80053; 80164; 80177; 82962; 83735; 84100; 84443; 84484; 85025; 85730; 90471; 90715; 93005; 93010; 96374; 96375; 99285-25; C9803-CS; U0003; U0005